=== PATIENT | male | born 1970 | race American Indian/Alaskan Native ===

== ENCOUNTER 2018-06-05 17:20 | Inpatient (IN) | payer SELFPAY ==
[2018-06-05 17:25] VITALS: BMI 24.3
[2018-06-05] MEDS ORDERED: Etomidate 20 mg/10ml Inj IV ONE (17:39)
[2018-06-05] MEDS ORDERED: Succinylcholine 200 mg/10 ml Inj IV ONE (17:39)
--- NOTE | 2018-06-05 17:50 | ED PDOC ---
Arrival/HPI - General Chief Complaint: Altered Mental Status Time Seen by Provider: 06/05/18 17:28 Historian: EMS EM Caveat: Altered Mental Status - History of Present Illness Narrative History of Present Illness (Text): 06/05/18 17:47 Patient is a 47 year old male who was brought to the Emergency department by S for altered mental status. BLS report that patient was found unresponsive [place] bus stop with no witnesses present. Per BLS Narcan was not administered as patient's pupils were not pinpoint and he was breathing. Limited HPI and ROS due to patient's AMS. Context: Street Past Medical History - Provider Review Nursing Documentation Reviewed: Yes - Infectious Disease Hx of Infectious Diseases: None - Psychiatric Hx Substance Use: No Family/Social History - Physician Review Nursing Documentation Reviewed: Yes Family/Social History: Unknown Family HX Smoking Status: Unknown If Ever Smoked Hx Alcohol Use: (unknown) Hx Substance Use: No Allergies/Home Meds Allergies/Adverse Reactions: Allergies Unobtainable Allergy (Verified 06/05/18 17:25) Home Medications: Home Meds Medication Instructions Recorded Confirmed RX: Unobtainable 06/05/18 06/05/18 Review of Systems - Review of Systems Systems not reviewed;Unavailable: Altered Mental Status Physical Exam - Physical Exam Physical Exam Limitations: Altered Mental Status Vital Signs Reviewed: Yes Temperature: Afebrile Blood Pressure: Hypertensive Pulse: Regular Respiratory Rate: Normal Mental Status: Positive for: other (unresponsive) Finger Stick Blood Glucose: 169 - Systems Exam Head: Present: Atraumatic, Normocephalic, Other (No obvious trauma to face.) Pupils: Present: Non-Reactive, Other (right pupil dilated 5mm; left pupil 2mm) Respiratory/Chest: Present: Respiratory Distress, Other (sonorous respiration. No obvious trauma to chest.) Cardiovascular: Present: Regular Rate and Rhythm, Normal S1, S2 Abdomen: Present: Other (No obvious trauma) Back: Present: Other (No obvious trauma.) Upper Extremity: Present: Other (No obvious trauma to upper extremities.). No: Edema Lower Extremity: Present: Other (No obvious trauma to lower extremities.). No: Edema Neurological: Present: Other (GCS=3). No: GCS=15 Medical Decision Making ED Course and Treatment: 06/05/18 17:50 Impression: 47 year old male brought to the Emergency department by BLS for altered mental status. Differential Diagnosis included but are not limited to: Plan: -- Cervical spine and Head CT without contrast -- Chest, Abdomen and Pelvis CT without contrast -- EKG -- Cardiac enzymes -- Labs -- Blood work -- Drug screen -- Chest X-ray -- Blood and urine culture. -- Urinalysis -- Reassess and disposition Progress Notes: Patient's Accu-check was 169. 06/05/18 17:34 Respiratory was called. 06/05/18 17:38 Etomidate 20mg was administered. 06/05/18 17:39 Succinate 100mg was administered 06/05/18 17:41 Direct laryngoscope with 8.0 ET tube, lip line 20cm. 06/05/18 Patient was sent for CT imaging. Upon returning his systolic blood pressure was greater than 200 and diastolic in the 130's. Patient was subsequently started on Cardene drip. 06/05/18 17:48 Called Radiology who stated that she sent CT readings for neuro to read. 06/05/18 17:50 Paged neurosurgery. 06/05/18 18:06 Called who stated that he isn't commissions coordinator. 06/05/18 18:12 Radiology called and stated images show thalamus bleed with intraventricular extension. Started patient on Cerebyx. 06/05/17 18:17 Discussed case with who stated that the patient's hemorrhage is non survivable and would recommend to not transfer. He will call back after reviewing the images. 06/05/18 18:24 reviewed images and restated that brain injury is not survivable. recommends comfort care for patient. 06/05/18 18:26 Spoke with , who was made aware of the patient as he will be moved to ICU. 06/05/18 18:32 Nurse has tried to get in contact with patient's family members. Patient has a phone which is locked. 06/05/18 18:32 Discussed case with , who was made aware of patient and accepts patient under his service. 06/05/18 18:48 Spoke with called back and requested that Mannitol 15mg be given to patient. - Critical Care Critical Care Minutes: Other (80 minutes) - Lab Interpretations I have reviewed the lab results: Yes - RAD Interpretation Narrative RAD Interpretations (Text): 06/05/18 18:[address] without Contrast: Dictator : Nathalie Pearce MD FINDINGS: HEMORRHAGE: There is a 6.8 x 5.0 cm acute parenchymal hematoma in the right basal ganglia and thalamus with moderate surrounding vasogenic edema, significant local and regional mass effect with diffuse effacement of bilateral cortical sulci and basilar cisterns, effacement of the right lateral ventricle and 12 mm midline shift from right to left. There is significant mass effect on the right midbrain and yocasta with impending uncal herniation. VENTRICLES: There is intraventricular extension of hemorrhage in lateral ventricles, 3rd ventricle and 4th ventricle. There is moderate obstructive hydrocephalus CALVARIUM: There is no calvarial fracture or extracranial soft tissue swelling. PARANASAL SINUSES: There is a small retention cyst/polyp in the right maxillary sinus. The remaining included paranasal sinuses are clear. MASTOID AIR CELLS: Predominantly clear. OTHER FINDINGS: None. IMPRESSION: 1. Large acute parenchymal hematoma in the right basal ganglia and thalamus measuring 6.8 x 5.0 cm. Moderate surrounding vasogenic edema, significant local and regional mass effect with diffuse effacement of bilateral cortical sulci and basilar cisterns, right lateral ventricle and 12 mm midline shift from right to left. 2. Significant mass effect on the right midbrain and yocasta with impending uncal herniation. 3. Intraventricular extension of hemorrhage in the lateral, 3rd and 4th ventricles and moderate obstructive hydrocephalus. 06/05/18 18:[address] without contrast: Dictator : Nathalie Pearce MD FINDINGS: VERTEBRAE: There is normal alignment of the cervical vertebral bodies. There is loss of normal cervical lordosis. Vertebral height is normal. Bone mineralization is normal. There is no acute fracture or traumatic anterior listhesis. The craniocervical junction is normal. The atlantoaxial joint normal. DISCS/SPINAL CANAL/NEURAL FORAMINA: Mild multilevel degenerative disc disease. No significant central canal or neural foraminal stenosis. Discs heights are grossly preserved. PARASPINAL SOFT TISSUES: The paraspinous soft tissues are normal. OTHER FINDINGS: Endotracheal tube remains in place. Biapical paraseptal emphysema. No apical pneumothorax. IMPRESSION: No acute fracture or traumatic anterior listhesis. Straightening of the cervical spine may be positional or related to muscle spasm. Chest/Abdomen/Pelvis CT without Contrast: Dictator : Alea Fine MD Findings: Endotracheal tube terminates above the riya. Visualized portions of the inferior thyroid gland appear unremarkable. The unenhanced mediastinal and hilar vascular structures appear grossly unremarkable. The heart appears within normal limits of size. Mild bibasilar atelectasis. No focal consolidation. No pleural effusion. No pneumothorax. Small hiatal hernia. Gastroesophageal reflux. External streak artifact limits evaluation of the upper quadrant. The noncontrast liver, spleen, kidneys, pancreas, adrenal glands, and gallbladder appear unremarkable. The stomach is nondistended. Lack of oral contrast limits evaluation for bowel pathology. Evidence of small bowel hyperdensity, possibly oral contrast from outside imaging. The bowel loops appear within normal limits of caliber without evidence of intestinal obstruction. Diverticulosis without CT evidence of acute diverticulitis. There is no definite free air. The prostate gland measures approximately 3.6 x 3.9 cm. Distended urinary bladder appears otherwise unremarkable. Degenerative changes. Impression: Endotracheal tube terminates above the riya. No acute intra thoracic, intra- abdominal, or intrapelvic pathology identified. Incidental findings as above. Optical Advisor: Radiologist - EKG Interpretation EKG Interpretation (Text): 06/05/18 17:40 EKG shows NSR at 89 BPM with normal intervals and axis. Nonspecific T wave changes, no ST elevations. Interpreted by me. Interpreted by ED Physician: Yes Type: 12 lead EKG - Scribe Statement The provider has reviewed the documentation as recorded by the Scribe Olaf Diehl Provider Scribe Attestation: All medical record entries made by the Scribe were at my direction and personally dictated by me. I have reviewed the chart and agree that the record accurately reflects my personal performance of the history, physical exam, medical decision making, and the department course for this patient. I have also personally directed, reviewed, and agree with the discharge instructions and di sposition. Disposition/Present on Arrival - Present on Arrival Any Indicators Present on Arrival: No History of DVT/PE: No History of Uncontrolled Diabetes: No Urinary Catheter: No History of Decub. Ulcer: No History Surgical Site Infection Following: None - Disposition Have Diagnosis and Disposition been Completed?: Yes Diagnosis: ICH (intracerebral hemorrhage) Disposition: HOSPITALIZED Disposition Time: 18:32 Patient Plan: Admission, ICU Patient Problems: Current Active Problems Problem Status Onset ICH (intracerebral hemorrhage) Acute Condition: CRITICAL
[2018-06-05 17:57] LABS: BASO # 0.05 K/mm3 (0.0-2.0); BASO % 0.6 % (0.0-3.0); EOS # 0.1 (0.0-0.7); EOS % 1.3 % (1.5-5.0); LYMPH # 4.2 (1.2-3.4); LYMPH % 47.4 % (22.0-35.0); MEAN CELL VOLUME 102.9 fl (80.0-105.0); MEAN CORPUSCULAR HEMOGLOBIN 36.3 pg (25.0-35.0); MEAN CORPUSCULAR HGB CONC 35.3 g/dl (31.0-37.0); MEAN PLATELET VOLUME 9.3 fl (7.0-11.0); MONO # 1.2 (0.1-0.6); MONO % 13.5 % (1.0-6.0); RBC 4.13 10^6/uL (3.5-6.1); RED CELL DISTRIBUTION WIDTH 11.7 % (11.5-14.5); WHITE BLOOD COUNT 8.8 10^3/uL (4.5-11.0)
[2018-06-05 17:58] LABS: INR 0.96; PARTIAL THROMBOPLASTIN TIME 29.5 Seconds (26.9-38.3); PROTHROMBIN TIME 10.7 SECONDS (9.4-12.5)
[2018-06-05] MEDS ORDERED: Fosphenytoin 1,000 MG in Sodium Chloride 0.9% 50 ML IV STA (18:08)
[2018-06-05 18:10] LABS: ACETAMINOPHEN < 10.0 ug/ml (10.0-20.0); SALICYLATE 4 mg/dL (2.0-20.0)
[2018-06-05] MEDS ORDERED: Nicardipine 20 MG/200 ML 20 MG/200 ML BAG IV PRN (18:14)
--- NOTE | 2018-06-05 18:17 | CT ---
Date of service: 06/05/2018 PROCEDURE: CT HEAD WITHOUT CONTRAST. HISTORY: AMS COMPARISON: None available. TECHNIQUE: Axial computed tomography images were obtained through the head/brain without intravenous contrast. Radiation dose: Total exam DLP = 796.91 mGy-cm. This CT exam was performed using one or more of the following dose reduction techniques: Automated exposure control, adjustment of the mA and/or kV according to patient size, and/or use of iterative reconstruction technique. FINDINGS: HEMORRHAGE: There is a 6.8 x 5.0 cm acute parenchymal hematoma in the right basal ganglia and thalamus with moderate surrounding vasogenic edema, significant local and regional mass effect with diffuse effacement of bilateral cortical sulci and basilar cisterns, effacement of the right lateral ventricle and 12 mm midline shift from right to left. There is significant mass effect on the right midbrain and yocasta with impending uncal herniation. VENTRICLES: There is intraventricular extension of hemorrhage in lateral ventricles, 3rd ventricle and 4th ventricle. There is moderate obstructive hydrocephalus CALVARIUM: There is no calvarial fracture or extracranial soft tissue swelling. PARANASAL SINUSES: There is a small retention cyst/polyp in the right maxillary sinus. The remaining included paranasal sinuses are clear. MASTOID AIR CELLS: Predominantly clear. OTHER FINDINGS: None. IMPRESSION: 1. Large acute parenchymal hematoma in the right basal ganglia and thalamus measuring 6.8 x 5.0 cm. Moderate surrounding vasogenic edema, significant local and regional mass effect with diffuse effacement of bilateral cortical sulci and basilar cisterns, right lateral ventricle and 12 mm midline shift from right to left. 2. Significant mass effect on the right midbrain and yocasta with impending uncal herniation. 3. Intraventricular extension of hemorrhage in the lateral, 3rd and 4th ventricles and moderate obstructive hydrocephalus. Critical findings were discussed with Dr. Hardy Ontiveros in the ER on 06/05/2018 at 6:13 p.m.
[2018-06-05 18:20] LABS: TROPONIN I < 0.01 ng/mL
--- NOTE | 2018-06-05 18:28 | CT ---
Date of service: 06/05/2018 PROCEDURE: CT Cervical Spine without contrast HISTORY: AMS COMPARISON: None available. TECHNIQUE: Axial computed tomography images were obtained of the cervical spine without the use of intravenous contrast. Coronal and sagittal reformatted images were created and reviewed. Radiation dose: Total exam DLP = 445.81 mGy-cm. This CT exam was performed using one or more of the following dose reduction techniques: Automated exposure control, adjustment of the mA and/or kV according to patient size, and/or use of iterative reconstruction technique. FINDINGS: VERTEBRAE: There is normal alignment of the cervical vertebral bodies. There is loss of normal cervical lordosis. Vertebral height is normal. Bone mineralization is normal. There is no acute fracture or traumatic anterior listhesis. The craniocervical junction is normal. The atlantoaxial joint normal. DISCS/SPINAL CANAL/NEURAL FORAMINA: Mild multilevel degenerative disc disease. No significant central canal or neural foraminal stenosis. Discs heights are grossly preserved. PARASPINAL SOFT TISSUES: The paraspinous soft tissues are normal. OTHER FINDINGS: Endotracheal tube remains in place. Biapical paraseptal emphysema. No apical pneumothorax. IMPRESSION: No acute fracture or traumatic anterior listhesis. Straightening of the cervical spine may be positional or related to muscle spasm.
[2018-06-05 18:32] LABS: ALB/GLOB RATIO 1.4 (1.1-1.8); ALBUMIN 4.9 g/dL (3.0-4.8); ALT/SGPT 57 U/L (7-56); AST/SGOT 139 U/L (17-59); BLOOD UREA NITROGEN 13 mg/dL (7-21); CALCIUM 10.4 mg/dL (8.4-10.5); GFR NON-AFRICAN AMERICAN > 60
--- NOTE | 2018-06-05 18:44 | CT ---
Date of service:06/05/2018 CT chest, abdomen, and pelvis without IV contrast Indication: AMS Technique: Contiguous axial images of the chest, abdomen, and pelvis without oral or IV contrast. Coronal and Sagittal reformats generated and reviewed. This CT exam was performed using 1 or more of the following dose reduction techniques: Automated exposure control, adjustment of the MAA and/or kV according to patient size, and/or use of iterative reconstruction technique. Radiation dose: Total exam DLP = 537.1 MGy-cm. Comparison: None available Findings: Endotracheal tube terminates above the riya. Visualized portions of the inferior thyroid gland appear unremarkable. The unenhanced mediastinal and hilar vascular structures appear grossly unremarkable. The heart appears within normal limits of size. Mild bibasilar atelectasis. No focal consolidation. No pleural effusion. No pneumothorax. Small hiatal hernia. Gastroesophageal reflux. External streak artifact limits evaluation of the upper quadrant. The noncontrast liver, spleen, kidneys, pancreas, adrenal glands, and gallbladder appear unremarkable. The stomach is nondistended. Lack of oral contrast limits evaluation for bowel pathology. Evidence of small bowel hyperdensity, possibly oral contrast from outside imaging. The bowel loops appear within normal limits of caliber without evidence of intestinal obstruction. Diverticulosis without CT evidence of acute diverticulitis. There is no definite free air. The prostate gland measures approximately 3.6 x 3.9 cm. Distended urinary bladder appears otherwise unremarkable. Degenerative changes. Impression: Endotracheal tube terminates above the riya. No acute intra thoracic, intra-abdominal, or intrapelvic pathology identified. Incidental findings as above.
[2018-06-05] MEDS ORDERED: Mannitol 12.5 gm/50 ml Inj IV ONE (18:50)
--- NOTE | 2018-06-05 19:13 | CP.PCM.HP ---
History of Present Illness - History of Present Illness History of Present Illness: Jessie Fabian - Bed 6 cc: Unresponsive Patient is a 47 year old male who was brought to the Emergency department by BLS for altered mental status. BLS report that patient was found unresponsive at a bus stop with no witnesses present. Per BLS Narcan was not administered as patient's pupils were not pinpoint and he was breathing. Limited HPI and ROS due to patient's AMS. Patient intubated NeuroSx on board (Dr. Cobb) Mannitol 15mg given Head CT w/o contrast: 1. Large acute parenchymal hematoma in the right basal ganglia and thalamus measuring 6.8 x 5.0 cm. Moderate surrounding vasogenic edema, significant local and regional mass effect with diffuse effacement of bilateral cortical sulci and basilar cisterns, right lateral ventricle and 12 mm midline shift from right to left. 2. Significant mass effect on the right midbrain and yocasta with impending uncal herniation. 3. Intraventricular extension of hemorrhage in the lateral, 3rd and 4th ventricles and moderate obstructive hydrocephalus. C-spine w/o contrast: No acute fracture or traumatic anterior listhesis. Straightening of the cervical spine may be positional or related to muscle spasm. CT Chest/Abd/Pelvis: Endotracheal tube terminates above the riya. No acute intra thoracic, intra- abdominal, or intrapelvic pathology identified. Incidental findings as above. EKG: NSR at [address] or T wave changes. Past Patient History - Infectious Disease Hx of Infectious Diseases: None - Past Social History Smoking Status: Unknown If Ever Smoked - PSYCHIATRIC Hx Substance Use: No Meds Allergies/Adverse Reactions: Allergies Allergy/AdvReac Type Severity Reaction Status Date / Time Unobtainable Allergy Verified 06/05/18 17:25 Results - Vital Signs Recent Vital Signs: Last Vital Signs Temp Pulse 92 H 06/05/18 18:54 Resp 22 06/05/18 18:54 BP 140/74 06/05/18 18:54 Pulse Ox 93 L 06/05/18 18:54 - Labs Result Diagrams: 06/05/18 17:45 06/05/18 17:45 Labs: Laboratory Results - last 24 hr 06/05/18 06/05/18 06/05/18 17:45 17:45 17:45 WBC 8.8 RBC 4.13 Hgb 15.0 Hct 42.5 MCV 102.9 MCH 36.3 H MCHC 35.3 RDW 11.7 Plt Count 276 MPV 9.3 Neut % (Auto) 37.2 L Lymph % (Auto) 47.4 H [place] % (Auto) 13.5 H Eos % (Auto) 1.3 L Baso % (Auto) 0.6 Lymph # (Auto) 4.2 H [place] # (Auto) 1.2 H Eos # (Auto) 0.1 Baso # (Auto) 0.05 Absolute Neuts (auto) 3.26 PT 10.7 INR 0.96 APTT 29.5 Sodium Potassium Chloride Carbon Dioxide Anion Gap BUN Creatinine Est GFR ( Amer) Est GFR (Non-Af Amer) Random Glucose Calcium Phosphorus Magnesium Total Bilirubin AST ALT Alkaline Phosphatase Lactate Dehydrogenase Total Creatine Kinase Troponin I Total Protein Albumin Globulin Albumin/Globulin Ratio TSH 3rd Generation Salicylates 4 Acetaminophen < 10.0 L Alcohol, Quantitative 06/05/18 06/05/18 17:45 17:45 WBC RBC Hgb Hct MCV MCH MCHC RDW Plt Count MPV Neut % (Auto) Lymph % (Auto) [place] % (Auto) Eos % (Auto) Baso % (Auto) Lymph # (Auto) [place] # (Auto) Eos # (Auto) Baso # (Auto) Absolute Neuts (auto) PT INR APTT Sodium 136 Potassium 2.8 L* Chloride 100 Carbon Dioxide 24 Anion Gap 14 BUN 13 Creatinine 0.8 Est GFR ( Amer) > 60 Est GFR (Non-Af Amer) > 60 Random Glucose 169 H Calcium 10.4 Phosphorus 2.5 Magnesium 1.7 Total Bilirubin 1.0 AST 139 H ALT 57 H Alkaline Phosphatase 108 Lactate Dehydrogenase 681 Total Creatine Kinase 214 Troponin I < 0.01 Total Protein 8.5 H Albumin 4.9 H Globulin 3.6 Albumin/Globulin Ratio 1.4 TSH 3rd Generation 3.37 Salicylates Acetaminophen Alcohol, Quantitative < 10
--- NOTE | 2018-06-05 19:33 | CP.PCM.HP ---
<Ifeanyi Walton - Last Filed: 06/05/18 22:40> History of Present Illness - History of Present Illness History of Present Illness: cc: Unresponsive 47 year old male with unknown past medical history who was brought to the Emergency department by BLS for altered mental status. BLS reported that [place] was [place] un[place] with no witnesses present. Per BLS Narcan was not administered as patient's pupils were not pinpoint and he was breathing. Patient currently intubated and unable to obtain full HPI and ROS due to AMS. Patient found to have a large acute parenchymal hematoma in the right basal ganglia and thalamus measuring 6.8 x 5.0 cm with significant local and regional mass effect and 12 mm midline shift from right to left. Present on Admission - Present on Admission Any Indicators Present on Admission: No Review of Systems - Review of Systems Systems not reviewed;Unavailable: Intubated Past Patient History - Infectious Disease Hx of Infectious Diseases: None - Past Social History Smoking Status: Unknown If Ever Smoked - PSYCHIATRIC Hx Substance Use: No Meds Allergies/Adverse Reactions: Allergies Allergy/AdvReac Type Severity Reaction Status Date / Time Unobtainable Allergy Verified 06/05/18 17:25 Physical Exam - Constitutional Appears: Other - Head Exam Head Exam: ATRAUMATIC, NORMAL INSPECTION, NORMOCEPHALIC - Eye Exam Additional comments: non reactive - Respiratory Exam Respiratory Exam: Clear to Auscultation Bilateral Additional comments: on ventilator - Cardiovascular Exam Cardiovascular Exam: REGULAR RHYTHM, +S1, +S2 - GI/Abdominal Exam GI & Abdominal Exam: Soft - Extremities Exam Extremities exam: Positive for: pedal pulses present. Negative for: pedal edema - Neurological Exam Additional comments: unresponsive Results - Vital Signs Recent Vital Signs: Last Vital Signs Temp 97.4 F L 06/05/18 17:30 Pulse 92 H 06/05/18 18:54 Resp 22 06/05/18 18:54 BP 140/74 06/05/18 18:54 Pulse Ox 93 L 06/05/18 18:54 - Labs Result Diagrams: 06/05/18 17:45 06/05/18 17:45 Labs: Laboratory Results - last 24 hr 06/05/18 06/05/18 06/05/18 17:45 17:45 17:45 WBC 8.8 RBC 4.13 Hgb 15.0 Hct 42.5 MCV 102.9 MCH 36.3 H MCHC 35.3 RDW 11.7 Plt Count 276 MPV 9.3 Neut % (Auto) 37.2 L Lymph % (Auto) 47.4 H [place] % (Auto) 13.5 H Eos % (Auto) 1.3 L Baso % (Auto) 0.6 Lymph # (Auto) 4.2 H [place] # (Auto) 1.2 H Eos # (Auto) 0.1 Baso # (Auto) 0.05 Absolute Neuts (auto) 3.26 PT 10.7 INR 0.96 APTT 29.5 Sodium Potassium Chloride Carbon Dioxide Anion Gap BUN Creatinine Est GFR ( Amer) Est GFR (Non-Af Amer) Random Glucose Calcium Phosphorus Magnesium Total Bilirubin AST ALT Alkaline Phosphatase Lactate Dehydrogenase Total Creatine Kinase Troponin I Total Protein Albumin Globulin Albumin/Globulin Ratio TSH 3rd Generation Salicylates 4 Acetaminophen < 10.0 L Alcohol, Quantitative 06/05/18 06/05/18 17:45 17:45 WBC RBC Hgb Hct MCV MCH MCHC RDW Plt Count MPV Neut % (Auto) Lymph % (Auto) [place] % (Auto) Eos % (Auto) Baso % (Auto) Lymph # (Auto) [place] # (Auto) Eos # (Auto) Baso # (Auto) Absolute Neuts (auto) PT INR APTT Sodium 136 Potassium 2.8 L* Chloride 100 Carbon Dioxide 24 Anion Gap 14 BUN 13 Creatinine 0.8 Est GFR ( Amer) > 60 Est GFR (Non-Af Amer) > 60 Random Glucose 169 H Calcium 10.4 Phosphorus 2.5 Magnesium 1.7 Total Bilirubin 1.0 AST 139 H ALT 57 H Alkaline Phosphatase 108 Lactate Dehydrogenase 681 Total Creatine Kinase 214 Troponin I < 0.01 Total Protein 8.5 H Albumin 4.9 H Globulin 3.6 Albumin/Globulin Ratio 1.4 TSH 3rd Generation 3.37 Salicylates Acetaminophen Alcohol, Quantitative < 10 Assessment & Plan - Assessment and Plan (Free Text) Assessment: 47 year old male with unknown past medical history who was brought to the Emergency department by BLS for altered mental status. Patient found to have a large acute parenchymal hematoma in the right basal ganglia and thalamus measuring 6.8 x 5.0 cm. Moderate surrounding vasogenic edema, significant local and regional mass effect with diffuse effacement of bilateral cortical sulci and basilar cisterns, right lateral ventricle and 12 mm midline shift from right to left. Neurosurgery on board, patient will be monitored in ICU. Plan: 1. AMS secondary to acute parenchymal bleed -patient intubated and on ventilator -urine tox pending -EKG shows NSR at 89 BPM with normal intervals and axis. Nonspecific T wave changes, no ST elevations -mannitol given in ED -Neurosurgery consulted, Reza, follow recs , no intervention at this time -Neuro consulted, Gomez, spoke to over the phone, no additional intervention at this time -Head CT without Contrast:1. Large acute parenchymal hematoma in the right basal ganglia and thalamus measuring 6.8 x 5.0 cm. Moderate surrounding vasogenic edema, significant local and regional mass effect with diffuse effacement of bilateral cortical sulci and basilar cisterns, right lateral ventricle and 12 mm midline shift from right to left. 2. Significant mass effect on the right midbrain and yocasta with impending uncal herniation. 3. Intraventricular extension of hemorrhage in the lateral, 3rd and 4th ventricles and moderate obstructive hydrocephalus. -Cervical Spine CT without contrast: No acute fracture or traumatic anterior listhesis. Straightening of the cervical spine may be positional or related to muscle spasm. -Chest/Abdomen/Pelvis CT without Contrast: Endotracheal tube terminates above the riya. No acute intra thoracic, intra-abdominal, or intrapelvic pathology identified. Incidental findings as above. -patient will be monitored in ICU -NPO, neurochecks -HOOB>45 degrees -blood cultures, urine cultures pending -type and screen -ammonia level pending 2. Hypokalemia -K 2.8 -repleted -continue to monitor 3. Hypertension -Initial BP 206/113 -started on cardene drip, BP improved to 140/74 -will continue to monitor Prophylaxis GI: protonix <Ema Pearce - Last Filed: 06/06/18 20:56> Results - Vital Signs Recent Vital Signs: Last Vital Signs Temp 98.3 F 06/06/18 02:00 Pulse 48 L 06/06/18 09:30 Resp 8 L 06/06/18 11:37 BP 211/144 H 06/06/18 08:03 Pulse Ox 74 L 06/06/18 10:39 - Labs Result Diagrams: 06/06/18 05:40 06/06/18 05:40 Labs: Laboratory Results - last 24 hr 0206/05/18 06/06/18 17:34 21:11 05:15 WBC RBC Hgb Hct MCV MCH MCHC RDW Plt Count MPV Neut % (Auto) Lymph % (Auto) [place] % (Auto) Eos % (Auto) Baso % (Auto) Lymph # (Auto) [place] # (Auto) Eos # (Auto) Baso # (Auto) Absolute Neuts (auto) pCO2 36 pO2 449.0 H HCO3 28.1 H ABG pH 7.50 H ABG Total CO2 29.2 H ABG O2 Saturation 100.1 H ABG O2 Content 25.5 H ABG Base Excess 5.0 H ABG Hemoglobin 17.8 H ABG Carboxyhemoglobin 1.5 POC ABG HHb (Measured) -0.1 L ABG Methemoglobin 1.3 ABG O2 Capacity 25.5 H Hgb O2 Saturation 97.3 FiO2 100.0 Crit Value Called To Rn Crit Value Called By Rs Blood Gas Notified Time 527 Sodium Potassium Chloride Carbon Dioxide Anion Gap BUN Creatinine Est GFR ( Amer) Est GFR (Non-Af Amer) Random Glucose Calcium Total Bilirubin AST ALT Alkaline Phosphatase Ammonia 11 Total Protein Albumin Globulin Albumin/Globulin Ratio Blood Type Confirm B POSITIVE 06/06/18 06/06/18 05:40 05:40 WBC 11.9 H D RBC 4.80 Hgb 17.5 D Hct 50.9 MCV 106.0 H D MCH 36.5 H MCHC 34.4 RDW 12.3 Plt Count 287 MPV 9.6 Neut % (Auto) 76.3 H Lymph % (Auto) 12.5 L [place] % (Auto) 10.8 H Eos % (Auto) 0.3 L Baso % (Auto) 0.1 Lymph # (Auto) 1.5 [place] # (Auto) 1.3 H Eos # (Auto) 0.0 Baso # (Auto) 0.01 Absolute Neuts (auto) 9.09 H pCO2 pO2 HCO3 ABG pH ABG Total CO2 ABG O2 Saturation ABG O2 Content ABG Base Excess ABG Hemoglobin ABG Carboxyhemoglobin POC ABG HHb (Measured) ABG Methemoglobin ABG O2 Capacity Hgb O2 Saturation FiO2 Crit Value Called To Crit Value Called By Blood Gas Notified Time Sodium 156 H* Potassium 4.7 Chloride 122 H Carbon Dioxide 27 Anion Gap 13 BUN 13 Creatinine 1.0 Est GFR ( Amer) > 60 Est GFR (Non-Af Amer) > 60 Random Glucose 201 H Calcium 11.4 H Total Bilirubin 1.3 AST 113 H ALT 51 Alkaline Phosphatase 84 Ammonia Total Protein 9.1 H Albumin 5.1 H Globulin 4.0 Albumin/Globulin Ratio 1.3 Blood Type Confirm Attending/Attestation - Attestation I have personally seen and examined this patient.: Yes I have fully participated in the care of the patient.: Yes I have reviewed all pertinent clinical information: Yes Notes (Text): 06/06/18 20:55 Patient was seen when he was in the ER. Medical record was reviewed. Agree with history , physical examination, assessment and plan. CCT spent > 30 minutes.
[2018-06-05 19:39] LABS: URINE BILIRUBIN NEGATIVE (NEGATIVE); URINE BLOOD LARGE (NEGATIVE); URINE GLUCOSE (UA) 250 mg/dL (NEGATIVE); URINE LEUKOCYTE ESTERASE NEGATIVE Leu/uL (NEGATIVE); URINE PROTEIN 30 mg/dL (<30 mg/dL); URINE UROBILINOGEN 0.2 E.U./dL (<1 E.U./dL)
[2018-06-05 19:46] LABS: URINE APPEARANCE CLEAR (CLEAR); URINE COLOR YELLOW (YELLOW)
[2018-06-05 19:49] LABS: URINE BACTERIA LARGE /hpf; URINE EPITHELIAL CELLS 0 - 2 /hpf (0-5); URINE RBC 25 - 30 /hpf (0-2)
[2018-06-05 19:51] LABS: URINE AMORPHOUS SEDIMENT FEW /hpf; URINE FINE GRANULAR CAST 0 - 2 /hpf
[2018-06-05 19:55] LABS: BARBITURATES, UR NEGATIVE (NEGATIVE); BENZODIAZEPINES, UR NEGATIVE (NEGATIVE); PHENCYCLIDINE, UR NEGATIVE (NEGATIVE)
[2018-06-05 20:09] LABS: OPIATES, UR NEGATIVE (NEGATIVE)
--- NOTE | 2018-06-05 22:38 | CP.PCM.PN ---
Subjective - Date & Time of Evaluation Date of Evaluation: 06/05/18 Time of Evaluation: 22:38 - Subjective Subjective: Discussed in detail prognosis to family members and detectives. Objective - Vital Signs/Intake and Output Vital Signs (last 24 hours): Temp Pulse Resp BP Pulse Ox 97.5 F L 88 21 137/63 98 06/05/18 20:47 06/05/18 21:50 06/05/18 21:11 06/05/18 21:36 06/05/18 21:50 Intake and Output: 06/05/18 06/06/18 18:59 06:59 Intake Total 7.5 72.5 Balance 7.5 72.5 - Medications Medications: Current Medications Nicardipine HCl (Cardene Iv Premix) 20 mg in 200 mls @ 50 mls/hr IV .Q4H PRN; Protocol PRN Reason: TITRATE PER MD ORDER Last Titration: 06/05/18 22:05 Dose: 0 mg/hr, 0 mls/hr Potassium Chloride (Potassium Chloride 20 Meq/100 Ml) 20 meq in 100 mls @ 50 mls/hr IVPB Q2H ESTHELA Stop: 06/05/18 22:44 Last Admin: 06/05/18 20:06 Dose: 50 mls/hr Pantoprazole Sodium (Protonix Inj) 40 mg IVP DAILY ESTHELA - Labs Labs: 06/05/18 17:45 06/05/18 17:45 PT 10.7 SECONDS (9.4-12.5) 06/05/18 17:45 INR 0.96 06/05/18 17:45 APTT 29.5 Seconds (26.9-38.3) 06/05/18 17:45
[2018-06-05] MEDS ORDERED: Fosphenytoin 500 MG in Dextrose 5% In Water 50 ML IV STA (22:57)
[2018-06-05] MEDS ORDERED: Propofol 10 mg/ml 1,000 MG/100 ML VIAL IV PRN (22:58)
[2018-06-05] MEDS ORDERED: Sodium Chloride 0.45% 1,000 ML IV SCH (23:30)
[2018-06-06 03:42] VITALS: TEMP 98.3
[2018-06-06] MEDS ORDERED: Metoprolol 1 mg/ml Inj IVP ONE (05:12)
[2018-06-06 05:27] LABS: ARTERIAL BLOOD GAS HCO3 28.1 mmol/L (21-28); ARTERIAL BLOOD GAS HEMOGLOBIN 17.8 g/dL (11.7-17.4); ARTERIAL BLOOD GAS O2 CAPACITY 25.5 mL/dl (16-24); ARTERIAL BLOOD GAS O2 CONTENT 25.5 ML/dl (15-23); ARTERIAL BLOOD GAS O2 SAT 100.1 % (95-98); ARTERIAL BLOOD GAS PCO2 36 mm/Hg (35-45); ARTERIAL BLOOD GAS TCO2 29.2 mmol.L (22-28)
[2018-06-06] MEDS ORDERED: Metoprolol 1 mg/ml Inj ONE (05:29)
[2018-06-06] MEDS ORDERED: Fosphenytoin 100 MG in Dextrose 5% In Water 50 ML IV SCH (06:00)
[2018-06-06 06:53] LABS: BASO # 0.01 K/mm3 (0.0-2.0); BASO % 0.1 % (0.0-3.0); EOS % 0.3 % (1.5-5.0); LYMPH # 1.5 (1.2-3.4); LYMPH % 12.5 % (22.0-35.0); MEAN CORPUSCULAR HEMOGLOBIN 36.5 pg (25.0-35.0); MEAN CORPUSCULAR HGB CONC 34.4 g/dl (31.0-37.0); MEAN PLATELET VOLUME 9.6 fl (7.0-11.0); MONO # 1.3 (0.1-0.6); MONO % 10.8 % (1.0-6.0); RBC 4.8 10^6/uL (3.5-6.1); RED CELL DISTRIBUTION WIDTH 12.3 % (11.5-14.5); WHITE BLOOD COUNT 11.9 10^3/uL (4.5-11.0)
[2018-06-06 07:09] LABS: HEMOGLOBIN 17.5 g/dL (14.0-18.0)
[2018-06-06 07:20] LABS: ALB/GLOB RATIO 1.3 (1.1-1.8); ALBUMIN 5.1 g/dL (3.0-4.8); ALT/SGPT 51 U/L (7-56); AST/SGOT 113 U/L (17-59); BLOOD UREA NITROGEN 13 mg/dL (7-21); CALCIUM 11.4 mg/dL (8.4-10.5); GFR NON-AFRICAN AMERICAN > 60
--- NOTE | 2018-06-06 07:23 | CARD ---
APPROVED REPORT Date of service: 06/05/2018 EKG Measurement Heart [id number] <Conclusion> Normal sinus rhythm with sinus arrhythmia Nonspecific ST abnormality Abnormal ECG
--- NOTE | 2018-06-06 08:27 | PCM.PROC ---
Procedures Attestation:: I certify that I have explained the specified Operation(s) or Procedure(s), risks, benefits and reasonable alternatives to the Patient and/or other person responsible. The opportunity was given to ask questions and all questions answered - Arterial Line Right Femoral Aseptic technique was employed throughout the procedure: Hand Hygiene done prior to procedure, Full sterile barriers (mask, hair cover, sterile gown, sterile gloves), Full body sterile drape, Chloraprep Antiseptic: 2 minute prep for Femoral Time Out Performed: Yes Pt. placed on Pulse Ox Monitor: Yes Central Line Prep: Chlorhexidine-Alcohol Combination Ultrasound Used for Placement: Yes Gauge (Size): 20 gauge Technique Used: Guide Wire Technique Secured by: Suture Post procedure dressing: Clear vapor permeable Patient Tolerated Procedure: no complications Immediate Complications: none Additional Comments: Supervised By: Mary Boykin MD and Parker Vieyra DO PGY3; Assisted by Leobardo Elam DO PGY2 - Central Line Placement Right Femoral Triple Lumen Catheter Aseptic technique was employed throughout the procedure: Hand Hygiene done prior to procedure, Full sterile barriers (mask, hair cover, sterile gown, sterile gloves), Full body sterile drape, Chloraprep Antiseptic: 2 minute prep for Femoral CVP Time Out Performed: Yes Pt. Placed on Pulse Ox Monitor: Yes Central Line Prep: Chlorhexidine-Alcohol Combination Ultrasound Used for Placement: No Central Line Lumen Inserted: triple Central Line Length: 20 cm Post Procedure: Sutured in Place, Good Blood Return, All Ports Aspirated, Flushed, Capped, Sterile Dressing Applied Secured by: Suture Post procedure dressing: Clear vapor permeable, Chlorhexidine disc (Biopatch) Post Procedure X-Ray: No Patient Tolerated Procedure: No Complications Immediate Complications: None Additional Comments: Supervised By: Mary Boykin MD and Parker Vierya DO PGY3; Assisted by Leobardo Elam DO PGY2
[2018-06-06 08:29] VITALS: BP 211/144
--- NOTE | 2018-06-06 08:42 | PCM.RRT ---
POULTRY BREEDER Nurse Assessment - Situation Date: 06/06/18 Time POULTRY BREEDER was called: 06:53 POULTRY BREEDER Responder Arrival Time: 06:53 POULTRY BREEDER Location:: Critical Care Unit Room Number: 128-3 POULTRY BREEDER Reason for Call: Hypotension POULTRY BREEDER Called By: RN - IV IV Inserted during POULTRY BREEDER?: Yes - Respiratory Oxygen Delivery Method: Intubated - Ventilator Settings Mode: PRVC CPR started during POULTRY BREEDER?: Yes - [place] Coma Scale Coma Scale Eye Opening: No response Coma Scale Motor: None Coma Scale Verbal: No response I.Reason for POULTRY BREEDER - A) Acute Change in Patient: Subjective: Pt had Code Blue called at 6:53 in 128-3 in the ICU. ICU team responded immediately and pts HR tracing showed Asystole. ACLS protocol initiated with compressions and several rounds of epi given and ROSC was acheived. After achieving ROSC central line was placed on the pt in the femoral region due to c- collar applied on pt in ED. Pressors support started. Pt was placed on levophed and vasopressin. Pt was then coded with ACLS initiated and compressions starting immediately as pt was noted to be in PEA arrest. 1 round of epi given and ROSC was achieved. A- line access was gained. Pt was then coded 3 subsequent times, with ACLS initiated and compressions starting immediately with each code ending after 1 round of epi given and achievement of ROSC. Plan - Assessment of Findings&Treatment Plan - Central line - A line - Pressors - Discussed outcomes and poor prognosis with family.
--- NOTE | 2018-06-06 09:55 | RAD ---
Date of service: 06/06/2018 HISTORY: intubated COMPARISON: No prior. FINDINGS: LUNGS: No active pulmonary disease. PLEURA: No significant pleural effusion identified, no pneumothorax apparent. CARDIOVASCULAR: No aortic atherosclerotic calcification present. Normal cardiac size. No congestive change. ET tube noted positioned approximately 2.9 cm above tracheal riya. Nasogastric tube extends to left upper quadrant of abdomen. OSSEOUS STRUCTURES: No significant abnormalities. VISUALIZED UPPER ABDOMEN: Normal. OTHER FINDINGS: None. IMPRESSION: No infiltrate. ET tube and NG tube are in grossly appropriate position.
--- NOTE | 2018-06-06 10:21 | CP.CCUPN ---
CCU Subjective - Physician Review Events Since Last Encounter (Free Text): 06/06/18 10:08 MICU Attending: Upon taking over my shift at 0700am, I was updated on the details regarding this unfortunate 47 M with HTN found down outside at a bus stop upon arrival to the ED found to a large acute parenchymal hematoma in the right basal ganglia and thalamus measuring 6.8 x 5.0 cm with moderate surrounding vasogenic edema and significant mass effect. Neurosurgical consultation recommended no intervention as prognosis was terminal. Patient has coded several times already and I felt there would be no benefit in further CPR given his CT head findings. I conveyed this information to his sisters as they arrived to hospital appox 0800am. They understood we would no longer perform CPR and allow him to pass comfortably in an effort to do no harm and preserve intergrity. They agreed this was reasonable. I answered all questions. Naturally, given the sudden nature and young age of the patient, family was very emotional however there were moments of calm where I was able to convey the above information to them. During these moments they relayed back to me understanding. They also mentioned having most of their questions answered over the phone prior to their arrival by the overnight team. At 0950am asystole on monitor and I went into the the room and pronounced the patient after examining him. Family made aware at bedside. roll examiner to be notified as well. Mary Boykin MD MICU Attending 06/06/18 10:20 CCU Objective - Vital Signs / Intake & Output Vital Signs (Last 4 hours): Vital Signs Pulse BP Pulse Ox 06/06/18 08:26 98 H 06/06/18 08:25 99 H 06/06/18 08:24 100 H 06/06/18 08:23 100 H 06/06/18 08:22 101 H 06/06/18 08:21 102 H 06/06/18 08:20 103 H 06/06/18 08:19 103 H 06/06/18 08:18 104 H 06/06/18 08:17 105 H 06/06/18 08:16 106 H 06/06/18 08:15 107 H 06/06/18 08:14 108 H 06/06/18 08:13 109 H 06/06/18 08:12 111 H 06/06/18 08:11 112 H 06/06/18 08:10 114 H 06/06/18 08:09 116 H 06/06/18 08:08 119 H 06/06/18 08:07 124 H 06/06/18 08:06 131 H 06/06/18 08:05 142 H 06/06/18 08:04 155 H 06/06/18 08:03 211/144 H 06/06/18 08:02 143 H 06/06/18 08:01 147/134 H 06/06/18 08:00 113 H 81 L 06/06/18 07:58 123 H 62/39 L 66 L 06/06/18 07:56 128 H 75/46 L 66 L 06/06/18 07:54 141 H 114/72 69 L 06/06/18 07:52 167 H 153/112 H 66 L 06/06/18 07:50 174 H 69 L 06/06/18 07:49 98 H 91/62 L 56 L 06/06/18 07:47 116 H 06/06/18 07:46 52/31 L 06/06/18 07:45 122 H 06/06/18 07:44 71/47 L 06/06/18 07:43 132 H 06/06/18 07:42 102/71 06/06/18 07:41 156 H 06/06/18 07:40 171 H 06/06/18 07:39 182 H 06/06/18 07:36 105 H 41/26 L 12 L 06/06/18 07:34 44/26 L Intake and Output (Last 8hrs): Intake & Output 06/05/18 06/06/18 06/06/18 22:59 06:59 14:59 Intake Total 80.0 1300 Output Total 7400 Balance 80.0 -6100 Weight 72.575 kg Intake: IV 80.0 1300 Left Antecubital 1050 Left Forearm 175 Right Antecubital 0 Right Forearm 0 Oral 0 Output: Gastric Amount 500 Stomach 500 Urine 6900 2-way Urethral 6900 Other: Voiding Method Indwelling Catheter # Bowel Movements 0 - Physical Exam Head: Positive for: Atraumatic, Normocephalic, Other (No obvious trauma to face.) Pupils: Positive for: Non-Reactive, Other (right pupil dilated 5mm; left pupil 2mm) Respiratory/Chest: Positive for: Respiratory Distress, Other (sonorous respiration. No obvious trauma to chest.) Cardiovascular: Positive for: Regular Rate and Rhythm, Normal S1, S2 Abdomen: Positive for: Other (No obvious trauma) Back: Positive for: Other (No obvious trauma.) Upper Extremity: Positive for: Other (No obvious trauma to upper extremities.). Negative for: Edema Lower Extremity: Positive for: Other (No obvious trauma to lower extremities.). Negative for: Edema Neurological: Positive for: Other (GCS=3). Negative for: GCS=15 - Medications Active Medications: Active Medications Generic Name Dose Route Start Last Admin Trade Name Freq PRN Reason Stop Dose Admin Nicardipine HCl 20 mg in 200 mls @ 50 mls/hr 06/05/18 18:14 06/06/18 06:30 Cardene Iv Premix IV 2.5 mg/hr .Q4H PRN 25 mls/hr TITRATE PER MD ORDER Titration Protocol 5 MG/HR Fosphenytoin Sodium 100 mg/ 52 mls @ 200 mls/hr 06/06/18 06:00 06/06/18 06:04 Dextrose IV 200 mls/hr Q8 ESTHELA Administration Propofol 1,000 mg in 100 mls @ 2.177 mls/hr 06/05/18 22:58 Diprivan IV .Q24H PRN TITRATE PER MD ORDER Protocol 5 MCG/KG/MIN Sodium Chloride 1,000 mls @ 100 mls/hr 06/05/18 23:30 06/06/18 00:54 Sodium Chloride 0.45% IV 06/08/18 23:31 100 mls/hr .Q10H ESTHELA Administration Acetaminophen 1,000 mg in 100 mls @ 400 mls/hr 06/06/18 05:14 06/06/18 06:05 Ofirmev IVPB 06/08/18 05:15 400 mls/hr Q6H PRN Administration Temp>100.4*F Vasopressin 20 units/ Sodium 101 mls @ 9.09 mls/hr 06/06/18 07:45 Chloride IV .Q11H7M ESTHELA Protocol 0.03 U/MIN Pantoprazole Sodium 40 mg 06/06/18 10:00 Protonix Inj IVP DAILY ESTHELA - Patient Studies Lab Studies: Lab Studies 06/06/18 06/06/18 06/06/18 Range/Units 05:40 05:40 05:15 WBC 11.9 H D (4.5-11.0) 10^3/uL RBC 4.80 (3.5-6.1) 10^6/uL Hgb 17.5 D (14.0-18.0) g/dL Hct 50.9 (42.0-52.0) % MCV 106.0 H D (80.0-105.0) fl MCH 36.5 H (25.0-35.0) pg MCHC 34.4 (31.0-37.0) g/dl RDW 12.3 (11.5-14.5) % Plt Count 287 (120.0-450.0) 10^3/uL MPV 9.6 (7.0-11.0) fl Neut % (Auto) 76.3 H (50.0-68.0) % Lymph % (Auto) 12.5 L (22.0-35.0) % [place] % (Auto) 10.8 H (1.0-6.0) % Eos % (Auto) 0.3 L (1.5-5.0) % Baso % (Auto) 0.1 (0.0-3.0) % Lymph # (Auto) 1.5 (1.2-3.4) [place] # (Auto) 1.3 H (0.1-0.6) Eos # (Auto) 0.0 (0.0-0.7) Baso # (Auto) 0.01 (0.0-2.0) K/mm3 Absolute Neuts (auto) 9.09 H (1.4-6.5) PT (9.4-12.5) SECONDS INR APTT (26.9-38.3) Seconds pCO2 36 (35-45) mm/Hg pO2 449.0 H (80-100) mm/Hg HCO3 28.1 H (21-28) mmol/L ABG pH 7.50 H (7.35-7.45) ABG Total CO2 29.2 H (22-28) mmol.L ABG O2 Saturation 100.1 H (95-98) % ABG O2 Content 25.5 H (15-23) ML/dl ABG Base Excess 5.0 H (-2.0-3.0) mmol/L ABG Hemoglobin 17.8 H (11.7-17.4) g/dL ABG Carboxyhemoglobin 1.5 (0.5-1.5) % POC ABG HHb (Measured) -0.1 L (0-5) % ABG Methemoglobin 1.3 (0.0-3.0) % ABG O2 Capacity 25.5 H (16-24) mL/dl Hgb O2 Saturation 97.3 (95.0-98.0) % FiO2 100.0 % Crit Value Called To Rn Crit Value Called By Rs Blood Gas Notified Time 527 Sodium 156 H* (132-148) mmol/L Potassium 4.7 (3.6-5.0) mmol/L Chloride 122 H (98-107) mmol/L Carbon Dioxide 27 (21-33) mmol/L Anion Gap 13 (10-20) BUN 13 (7-21) mg/dL Creatinine 1.0 (0.8-1.5) mg/dl Est GFR ( Amer) > 60 Est GFR (Non-Af Amer) > 60 Random Glucose 201 H (70-110) mg/dL Calcium 11.4 H (8.4-10.5) mg/dL Phosphorus (2.5-4.5) mg/dL Magnesium (1.7-2.2) mg/dL Total Bilirubin 1.3 (0.2-1.3) mg/dL AST 113 H (17-59) U/L ALT 51 (7-56) U/L Alkaline Phosphatase 84 (38-126) U/L Ammonia (9-33) umol/L Lactate Dehydrogenase (333-699) U/L Total Creatine Kinase (35-230) U/L Troponin I ng/mL Total Protein 9.1 H (5.8-8.3) g/dL Albumin 5.1 H (3.0-4.8) g/dL Globulin 4.0 gm/dL Albumin/Globulin Ratio 1.3 (1.1-1.8) TSH 3rd Generation (0.46-4.68) mIU/mL Urine Color (YELLOW) Urine Appearance (CLEAR) Urine pH (4.7-8.0) Ur Specific [place] (1.005-1.035) Urine Protein (<30 mg/dL) mg/dL Urine Glucose (UA) (NEGATIVE) mg/dL Urine Ketones (NEGATIVE) mg/dL Urine Blood (NEGATIVE) Urine Nitrate (NEGATIVE) Urine Bilirubin (NEGATIVE) Urine Urobilinogen (<1 E.U./dL) E.U./dL Ur Leukocyte Esterase (NEGATIVE) Willis/uL Urine RBC (0-2) /hpf Urine WBC (0-6) /hpf Ur Epithelial Cells (0-5) /hpf Amorphous Sediment (NONE) /hpf Urine Bacteria (NONE) /hpf Fine Granular Casts (NONE) /hpf Urine Other /hpf Salicylates (2.0-20.0) mg/dL Urine Opiates Screen (NEGATIVE) Urine Methadone Screen (NEGATIVE) Acetaminophen (10.0-20.0) ug/ml Ur Barbiturates Screen (NEGATIVE) Ur Phencyclidine Scrn (NEGATIVE) Ur Amphetamines Screen (NEGATIVE) U Benzodiazepines Scrn (NEGATIVE) U Oth Cocaine Metabols (NEGATIVE) U Cannabinoids Screen (NEGATIVE) Alcohol, Quantitative (0-10) mg/dL Blood Type Blood Type Confirm Antibody Screen BBK History Checked 06/05/18 06/05/18 06/05/18 Range/Units 21:11 19:12 18:12 WBC (4.5-11.0) 10^3/uL RBC (3.5-6.1) 10^6/uL Hgb (14.0-18.0) g/dL Hct (42.0-52.0) % MCV (80.0-105.0) fl MCH (25.0-35.0) pg MCHC (31.0-37.0) g/dl RDW (11.5-14.5) % Plt Count (120.0-450.0) 10^3/uL MPV (7.0-11.0) fl Neut % (Auto) (50.0-68.0) % Lymph % (Auto) (22.0-35.0) % [place] % (Auto) (1.0-6.0) % Eos % (Auto) (1.5-5.0) % Baso % (Auto) (0.0-3.0) % Lymph # (Auto) (1.2-3.4) [place] # (Auto) (0.1-0.6) Eos # (Auto) (0.0-0.7) Baso # (Auto) (0.0-2.0) K/mm3 Absolute Neuts (auto) (1.4-6.5) PT (9.4-12.5) SECONDS INR APTT (26.9-38.3) Seconds pCO2 (35-45) mm/Hg pO2 (80-100) mm/Hg HCO3 (21-28) mmol/L ABG pH (7.35-7.45) ABG Total CO2 (22-28) mmol.L ABG O2 Saturation (95-98) % ABG O2 Content (15-23) ML/dl ABG Base Excess (-2.0-3.0) mmol/L ABG Hemoglobin (11.7-17.4) g/dL ABG Carboxyhemoglobin (0.5-1.5) % POC ABG HHb (Measured) (0-5) % ABG Methemoglobin (0.0-3.0) % ABG O2 Capacity (16-24) mL/dl Hgb O2 Saturation (95.0-98.0) % FiO2 % Crit Value Called To Crit Value Called By Blood Gas Notified Time Sodium (132-148) mmol/L Potassium (3.6-5.0) mmol/L Chloride (98-107) mmol/L Carbon Dioxide (21-33) mmol/L Anion Gap (10-20) BUN (7-21) mg/dL Creatinine (0.8-1.5) mg/dl Est GFR ( Amer) Est GFR (Non-Af Amer) Random Glucose (70-110) mg/dL Calcium (8.4-10.5) mg/dL Phosphorus (2.5-4.5) mg/dL Magnesium (1.7-2.2) mg/dL Total Bilirubin (0.2-1.3) mg/dL AST (17-59) U/L ALT (7-56) U/L Alkaline Phosphatase (38-126) U/L Ammonia 11 (9-33) umol/L Lactate Dehydrogenase (333-699) U/L Total Creatine Kinase (35-230) U/L Troponin I ng/mL Total Protein (5.8-8.3) g/dL Albumin (3.0-4.8) g/dL Globulin gm/dL Albumin/Globulin Ratio (1.1-1.8) TSH 3rd Generation (0.46-4.68) mIU/mL Urine Color (YELLOW) Urine Appearance (CLEAR) Urine pH (4.7-8.0) Ur Specific [place] (1.005-1.035) Urine Protein (<30 mg/dL) mg/dL Urine Glucose (UA) (NEGATIVE) mg/dL Urine Ketones (NEGATIVE) mg/dL Urine Blood (NEGATIVE) Urine Nitrate (NEGATIVE) Urine Bilirubin (NEGATIVE) Urine Urobilinogen (<1 E.U./dL) E.U./dL Ur Leukocyte Esterase (NEGATIVE) Willis/uL Urine RBC (0-2) /hpf Urine WBC (0-6) /hpf Ur Epithelial Cells (0-5) /hpf Amorphous Sediment (NONE) /hpf Urine Bacteria (NONE) /hpf Fine Granular Casts (NONE) /hpf Urine Other /hpf Salicylates (2.0-20.0) mg/dL Urine Opiates Screen Negative (NEGATIVE) Urine Methadone Screen Negative (NEGATIVE) Acetaminophen (10.0-20.0) ug/ml Ur Barbiturates Screen Negative (NEGATIVE) Ur Phencyclidine Scrn Negative (NEGATIVE) Ur Amphetamines Screen Negative (NEGATIVE) U Benzodiazepines Scrn Negative (NEGATIVE) U Oth Cocaine Metabols Negative (NEGATIVE) U Cannabinoids Screen Negative (NEGATIVE) Alcohol, Quantitative (0-10) mg/dL Blood Type B POSITIVE Blood Type Confirm Antibody Screen Negative BBK History Checked No verified bt 06/05/18 06/05/18 06/05/18 Range/Units 18:12 17:45 17:45 WBC (4.5-11.0) 10^3/uL RBC (3.5-6.1) 10^6/uL Hgb (14.0-18.0) g/dL Hct (42.0-52.0) % MCV (80.0-105.0) fl MCH (25.0-35.0) pg MCHC (31.0-37.0) g/dl RDW (11.5-14.5) % Plt Count (120.0-450.0) 10^3/uL MPV (7.0-11.0) fl Neut % (Auto) (50.0-68.0) % Lymph % (Auto) (22.0-35.0) % [place] % (Auto) (1.0-6.0) % Eos % (Auto) (1.5-5.0) % Baso % (Auto) (0.0-3.0) % Lymph # (Auto) (1.2-3.4) [place] # (Auto) (0.1-0.6) Eos # (Auto) (0.0-0.7) Baso # (Auto) (0.0-2.0) K/mm3 Absolute Neuts (auto) (1.4-6.5) PT (9.4-12.5) SECONDS INR APTT (26.9-38.3) Seconds pCO2 (35-45) mm/Hg pO2 (80-100) mm/Hg HCO3 (21-28) mmol/L ABG pH (7.35-7.45) ABG Total CO2 (22-28) mmol.L ABG O2 Saturation (95-98) % ABG O2 Content (15-23) ML/dl ABG Base Excess (-2.0-3.0) mmol/L ABG Hemoglobin (11.7-17.4) g/dL ABG Carboxyhemoglobin (0.5-1.5) % POC ABG HHb (Measured) (0-5) % ABG Methemoglobin (0.0-3.0) % ABG O2 Capacity (16-24) mL/dl Hgb O2 Saturation (95.0-98.0) % FiO2 % Crit Value Called To Crit Value Called By Blood Gas Notified Time Sodium 136 (132-148) mmol/L Potassium 2.8 L* (3.6-5.0) mmol/L Chloride 100 (98-107) mmol/L Carbon Dioxide 24 (21-33) mmol/L Anion Gap 14 (10-20) BUN 13 (7-21) mg/dL Creatinine 0.8 (0.8-1.5) mg/dl Est GFR ( Amer) > 60 Est GFR (Non-Af Amer) > 60 Random Glucose 169 H (70-110) mg/dL Calcium 10.4 (8.4-10.5) mg/dL Phosphorus 2.5 (2.5-4.5) mg/dL Magnesium 1.7 (1.7-2.2) mg/dL Total Bilirubin 1.0 (0.2-1.3) mg/dL AST 139 H (17-59) U/L ALT 57 H (7-56) U/L Alkaline Phosphatase 108 (38-126) U/L Ammonia (9-33) umol/L Lactate Dehydrogenase 681 (333-699) U/L Total Creatine Kinase 214 (35-230) U/L Troponin I < 0.01 ng/mL Total Protein 8.5 H (5.8-8.3) g/dL Albumin 4.9 H (3.0-4.8) g/dL Globulin 3.6 gm/dL Albumin/Globulin Ratio 1.4 (1.1-1.8) TSH 3rd Generation 3.37 (0.46-4.68) mIU/mL Urine Color Yellow (YELLOW) Urine Appearance Clear (CLEAR) Urine pH 7.0 (4.7-8.0) Ur Specific [place] 1.015 (1.005-1.035) Urine Protein 30 H (<30 mg/dL) mg/dL Urine Glucose (UA) 250 H (NEGATIVE) mg/dL Urine Ketones Trace H (NEGATIVE) mg/dL Urine Blood Large H (NEGATIVE) Urine Nitrate Negative (NEGATIVE) Urine Bilirubin Negative (NEGATIVE) Urine Urobilinogen 0.2 (<1 E.U./dL) E.U./dL Ur Leukocyte Esterase Negative (NEGATIVE) Willis/uL Urine RBC 25 - 30 H (0-2) /hpf Urine WBC 1 - 3 (0-6) /hpf Ur Epithelial Cells 0 - 2 (0-5) /hpf Amorphous Sediment Few (NONE) /hpf Urine Bacteria Large (NONE) /hpf Fine Granular Casts 0 - 2 (NONE) /hpf Urine Other Fiber /hpf Salicylates (2.0-20.0) mg/dL Urine Opiates Screen (NEGATIVE) Urine Methadone Screen (NEGATIVE) Acetaminophen (10.0-20.0) ug/ml Ur Barbiturates Screen (NEGATIVE) Ur Phencyclidine Scrn (NEGATIVE) Ur Amphetamines Screen (NEGATIVE) U Benzodiazepines Scrn (NEGATIVE) U Oth Cocaine Metabols (NEGATIVE) U Cannabinoids Screen (NEGATIVE) Alcohol, Quantitative < 10 (0-10) mg/dL Blood Type Blood Type Confirm Antibody Screen BBK History Checked 06/05/18 06/05/18 06/05/18 Range/Units 17:45 17:45 17:45 WBC 8.8 (4.5-11.0) 10^3/uL RBC 4.13 (3.5-6.1) 10^6/uL Hgb 15.0 (14.0-18.0) g/dL Hct 42.5 (42.0-52.0) % MCV 102.9 (80.0-105.0) fl MCH 36.3 H (25.0-35.0) pg MCHC 35.3 (31.0-37.0) g/dl RDW 11.7 (11.5-14.5) % Plt Count 276 (120.0-450.0) 10^3/uL MPV 9.3 (7.0-11.0) fl Neut % (Auto) 37.2 L (50.0-68.0) % Lymph % (Auto) 47.4 H (22.0-35.0) % [place] % (Auto) 13.5 H (1.0-6.0) % Eos % (Auto) 1.3 L (1.5-5.0) % Baso % (Auto) 0.6 (0.0-3.0) % Lymph # (Auto) 4.2 H (1.2-3.4) [place] # (Auto) 1.2 H (0.1-0.6) Eos # (Auto) 0.1 (0.0-0.7) Baso # (Auto) 0.05 (0.0-2.0) K/mm3 Absolute Neuts (auto) 3.26 (1.4-6.5) PT 10.7 (9.4-12.5) SECONDS INR 0.96 APTT 29.5 (26.9-38.3) Seconds pCO2 (35-45) mm/Hg pO2 (80-100) mm/Hg HCO3 (21-28) mmol/L ABG pH (7.35-7.45) ABG Total CO2 (22-28) mmol.L ABG O2 Saturation (95-98) % ABG O2 Content (15-23) ML/dl ABG Base Excess (-2.0-3.0) mmol/L ABG Hemoglobin (11.7-17.4) g/dL ABG Carboxyhemoglobin (0.5-1.5) % POC ABG HHb (Measured) (0-5) % ABG Methemoglobin (0.0-3.0) % ABG O2 Capacity (16-24) mL/dl Hgb O2 Saturation (95.0-98.0) % FiO2 % Crit Value Called To Crit Value Called By Blood Gas Notified Time Sodium (132-148) mmol/L Potassium (3.6-5.0) mmol/L Chloride (98-107) mmol/L Carbon Dioxide (21-33) mmol/L Anion Gap (10-20) BUN (7-21) mg/dL Creatinine (0.8-1.5) mg/dl Est GFR ( Amer) Est GFR (Non-Af Amer) Random Glucose (70-110) mg/dL Calcium (8.4-10.5) mg/dL Phosphorus (2.5-4.5) mg/dL Magnesium (1.7-2.2) mg/dL Total Bilirubin (0.2-1.3) mg/dL AST (17-59) U/L ALT (7-56) U/L Alkaline Phosphatase (38-126) U/L Ammonia (9-33) umol/L Lactate Dehydrogenase (333-699) U/L Total Creatine Kinase (35-230) U/L Troponin I ng/mL Total Protein (5.8-8.3) g/dL Albumin (3.0-4.8) g/dL Globulin gm/dL Albumin/Globulin Ratio (1.1-1.8) TSH 3rd Generation (0.46-4.68) mIU/mL Urine Color (YELLOW) Urine Appearance (CLEAR) Urine pH (4.7-8.0) Ur Specific [place] (1.005-1.035) Urine Protein (<30 mg/dL) mg/dL Urine Glucose (UA) (NEGATIVE) mg/dL Urine Ketones (NEGATIVE) mg/dL Urine Blood (NEGATIVE) Urine Nitrate (NEGATIVE) Urine Bilirubin (NEGATIVE) Urine Urobilinogen (<1 E.U./dL) E.U./dL Ur Leukocyte Esterase (NEGATIVE) Willis/uL Urine RBC (0-2) /hpf Urine WBC (0-6) /hpf Ur Epithelial Cells (0-5) /hpf Amorphous Sediment (NONE) /hpf Urine Bacteria (NONE) /hpf Fine Granular Casts (NONE) /hpf Urine Other /hpf Salicylates 4 (2.0-20.0) mg/dL Urine Opiates Screen (NEGATIVE) Urine Methadone Screen (NEGATIVE) Acetaminophen < 10.0 L (10.0-20.0) ug/ml Ur Barbiturates Screen (NEGATIVE) Ur Phencyclidine Scrn (NEGATIVE) Ur Amphetamines Screen (NEGATIVE) U Benzodiazepines Scrn (NEGATIVE) U Oth Cocaine Metabols (NEGATIVE) U Cannabinoids Screen (NEGATIVE) Alcohol, Quantitative (0-10) mg/dL Blood Type Blood Type Confirm Antibody Screen BBK History Checked 06/05/18 Range/Units 17:34 WBC (4.5-11.0) 10^3/uL RBC (3.5-6.1) 10^6/uL Hgb (14.0-18.0) g/dL Hct (42.0-52.0) % MCV (80.0-105.0) fl MCH (25.0-35.0) pg MCHC (31.0-37.0) g/dl RDW (11.5-14.5) % Plt Count (120.0-450.0) 10^3/uL MPV (7.0-11.0) fl Neut % (Auto) (50.0-68.0) % Lymph % (Auto) (22.0-35.0) % [place] % (Auto) (1.0-6.0) % Eos % (Auto) (1.5-5.0) % Baso % (Auto) (0.0-3.0) % Lymph # (Auto) (1.2-3.4) [place] # (Auto) (0.1-0.6) Eos # (Auto) (0.0-0.7) Baso # (Auto) (0.0-2.0) K/mm3 Absolute Neuts (auto) (1.4-6.5) PT (9.4-12.5) SECONDS INR APTT (26.9-38.3) Seconds pCO2 (35-45) mm/Hg pO2 (80-100) mm/Hg HCO3 (21-28) mmol/L ABG pH (7.35-7.45) ABG Total CO2 (22-28) mmol.L ABG O2 Saturation (95-98) % ABG O2 Content (15-23) ML/dl ABG Base Excess (-2.0-3.0) mmol/L ABG Hemoglobin (11.7-17.4) g/dL ABG Carboxyhemoglobin (0.5-1.5) % POC ABG HHb (Measured) (0-5) % ABG Methemoglobin (0.0-3.0) % ABG O2 Capacity (16-24) mL/dl Hgb O2 Saturation (95.0-98.0) % FiO2 % Crit Value Called To Crit Value Called By Blood Gas Notified Time Sodium (132-148) mmol/L Potassium (3.6-5.0) mmol/L Chloride (98-107) mmol/L Carbon Dioxide (21-33) mmol/L Anion Gap (10-20) BUN (7-21) mg/dL Creatinine (0.8-1.5) mg/dl Est GFR ( Amer) Est GFR (Non-Af Amer) Random Glucose (70-110) mg/dL Calcium (8.4-10.5) mg/dL Phosphorus (2.5-4.5) mg/dL Magnesium (1.7-2.2) mg/dL Total Bilirubin (0.2-1.3) mg/dL AST (17-59) U/L ALT (7-56) U/L Alkaline Phosphatase (38-126) U/L Ammonia (9-33) umol/L Lactate Dehydrogenase (333-699) U/L Total Creatine Kinase (35-230) U/L Troponin I ng/mL Total Protein (5.8-8.3) g/dL Albumin (3.0-4.8) g/dL Globulin gm/dL Albumin/Globulin Ratio (1.1-1.8) TSH 3rd Generation (0.46-4.68) mIU/mL Urine Color (YELLOW) Urine Appearance (CLEAR) Urine pH (4.7-8.0) Ur Specific [place] (1.005-1.035) Urine Protein (<30 mg/dL) mg/dL Urine Glucose (UA) (NEGATIVE) mg/dL Urine Ketones (NEGATIVE) mg/dL Urine Blood (NEGATIVE) Urine Nitrate (NEGATIVE) Urine Bilirubin (NEGATIVE) Urine Urobilinogen (<1 E.U./dL) E.U./dL Ur Leukocyte Esterase (NEGATIVE) Willis/uL Urine RBC (0-2) /hpf Urine WBC (0-6) /hpf Ur Epithelial Cells (0-5) /hpf Amorphous Sediment (NONE) /hpf Urine Bacteria (NONE) /hpf Fine Granular Casts (NONE) /hpf Urine Other /hpf Salicylates (2.0-20.0) mg/dL Urine Opiates Screen (NEGATIVE) Urine Methadone Screen (NEGATIVE) Acetaminophen (10.0-20.0) ug/ml Ur Barbiturates Screen (NEGATIVE) Ur Phencyclidine Scrn (NEGATIVE) Ur Amphetamines Screen (NEGATIVE) U Benzodiazepines Scrn (NEGATIVE) U Oth Cocaine Metabols (NEGATIVE) U Cannabinoids Screen (NEGATIVE) Alcohol, Quantitative (0-10) mg/dL Blood Type Blood Type Confirm B POSITIVE Antibody Screen BBK History Checked Laboratory Results - last 24 hr 06/05/18 06/05/18 06/05/18 17:34 17:45 17:45 WBC 8.8 RBC 4.13 Hgb 15.0 Hct 42.5 MCV 102.9 MCH 36.3 H MCHC 35.3 RDW 11.7 Plt Count 276 MPV 9.3 Neut % (Auto) 37.2 L Lymph % (Auto) 47.4 H [place] % (Auto) 13.5 H Eos % (Auto) 1.3 L Baso % (Auto) 0.6 Lymph # (Auto) 4.2 H [place] # (Auto) 1.2 H Eos # (Auto) 0.1 Baso # (Auto) 0.05 Absolute Neuts (auto) 3.26 PT INR APTT pCO2 pO2 HCO3 ABG pH ABG Total CO2 ABG O2 Saturation ABG O2 Content ABG Base Excess ABG Hemoglobin ABG Carboxyhemoglobin POC ABG HHb (Measured) ABG Methemoglobin ABG O2 Capacity Hgb O2 Saturation FiO2 Crit Value Called To Crit Value Called By Blood Gas Notified Time Sodium Potassium Chloride Carbon Dioxide Anion Gap BUN Creatinine Est GFR ( Amer) Est GFR (Non-Af Amer) Random Glucose Calcium Phosphorus Magnesium Total Bilirubin AST ALT Alkaline Phosphatase Ammonia Lactate Dehydrogenase Total Creatine Kinase Troponin I Total Protein Albumin Globulin Albumin/Globulin Ratio TSH 3rd Generation Urine Color Urine Appearance Urine pH Ur Specific [place] Urine Protein Urine Glucose (UA) Urine Ketones Urine Blood Urine Nitrate Urine Bilirubin Urine Urobilinogen Ur Leukocyte Esterase Urine RBC Urine WBC Ur Epithelial Cells Amorphous Sediment Urine Bacteria Fine Granular Casts Urine Other Salicylates 4 Urine Opiates Screen Urine Methadone Screen Acetaminophen < 10.0 L Ur Barbiturates Screen Ur Phencyclidine Scrn Ur Amphetamines Screen U Benzodiazepines Scrn U Oth Cocaine Metabols U Cannabinoids Screen Alcohol, Quantitative Blood Type Blood Type Confirm B POSITIVE Antibody Screen BBK History Checked 06/05/18 06/05/18 06/05/18 17:45 17:45 17:45 WBC RBC Hgb Hct MCV MCH MCHC RDW Plt Count MPV Neut % (Auto) Lymph % (Auto) [place] % (Auto) Eos % (Auto) Baso % (Auto) Lymph # (Auto) [place] # (Auto) Eos # (Auto) Baso # (Auto) Absolute Neuts (auto) PT 10.7 INR 0.96 APTT 29.5 pCO2 pO2 HCO3 ABG pH ABG Total CO2 ABG O2 Saturation ABG O2 Content ABG Base Excess ABG Hemoglobin ABG Carboxyhemoglobin POC ABG HHb (Measured) ABG Methemoglobin ABG O2 Capacity Hgb O2 Saturation FiO2 Crit Value Called To Crit Value Called By Blood Gas Notified Time Sodium 136 Potassium 2.8 L* Chloride 100 Carbon Dioxide 24 Anion Gap 14 BUN 13 Creatinine 0.8 Est GFR ( Amer) > 60 Est GFR (Non-Af Amer) > 60 Random Glucose 169 H Calcium 10.4 Phosphorus 2.5 Magnesium 1.7 Total Bilirubin 1.0 AST 139 H ALT 57 H Alkaline Phosphatase 108 Ammonia Lactate Dehydrogenase 681 Total Creatine Kinase 214 Troponin I < 0.01 Total Protein 8.5 H Albumin 4.9 H Globulin 3.6 Albumin/Globulin Ratio 1.4 TSH 3rd Generation 3.37 Urine Color Urine Appearance Urine pH Ur Specific [place] Urine Protein Urine Glucose (UA) Urine Ketones Urine Blood Urine Nitrate Urine Bilirubin Urine Urobilinogen Ur Leukocyte Esterase Urine RBC Urine WBC Ur Epithelial Cells Amorphous Sediment Urine Bacteria Fine Granular Casts Urine Other Salicylates Urine Opiates Screen Urine Methadone Screen Acetaminophen Ur Barbiturates Screen Ur Phencyclidine Scrn Ur Amphetamines Screen U Benzodiazepines Scrn U Oth Cocaine Metabols U Cannabinoids Screen Alcohol, Quantitative < 10 Blood Type Blood Type Confirm Antibody Screen BBK History Checked 06/05/18 06/05/18 06/05/18 18:12 18:12 19:12 WBC RBC Hgb Hct MCV MCH MCHC RDW Plt Count MPV Neut % (Auto) Lymph % (Auto) [place] % (Auto) Eos % (Auto) Baso % (Auto) Lymph # (Auto) [place] # (Auto) Eos # (Auto) Baso # (Auto) Absolute Neuts (auto) PT INR APTT pCO2 pO2 HCO3 ABG pH ABG Total CO2 ABG O2 Saturation ABG O2 Content ABG Base Excess ABG Hemoglobin ABG Carboxyhemoglobin POC ABG HHb (Measured) ABG Methemoglobin ABG O2 Capacity Hgb O2 Saturation FiO2 Crit Value Called To Crit Value Called By Blood Gas Notified Time Sodium Potassium Chloride Carbon Dioxide Anion Gap BUN Creatinine Est GFR ( Amer) Est GFR (Non-Af Amer) Random Glucose Calcium Phosphorus Magnesium Total Bilirubin AST ALT Alkaline Phosphatase Ammonia Lactate Dehydrogenase Total Creatine Kinase Troponin I Total Protein Albumin Globulin Albumin/Globulin Ratio TSH 3rd Generation Urine Color Yellow Urine Appearance Clear Urine pH 7.0 Ur Specific [place] 1.015 Urine Protein 30 H Urine Glucose (UA) 250 H Urine Ketones Trace H Urine Blood Large H Urine Nitrate Negative Urine Bilirubin Negative Urine Urobilinogen 0.2 Ur Leukocyte Esterase Negative Urine RBC 25 - 30 H Urine WBC 1 - 3 Ur Epithelial Cells 0 - 2 Amorphous Sediment Few Urine Bacteria Large Fine Granular Casts 0 - 2 Urine Other Fiber Salicylates Urine Opiates Screen Negative Urine Methadone Screen Negative Acetaminophen Ur Barbiturates Screen Negative Ur Phencyclidine Scrn Negative Ur Amphetamines Screen Negative U Benzodiazepines Scrn Negative U Oth Cocaine Metabols Negative U Cannabinoids Screen Negative Alcohol, Quantitative Blood Type B POSITIVE Blood Type Confirm Antibody Screen Negative BBK History Checked No verified bt 06/05/18 06/06/18 06/06/18 21:11 05:15 05:40 WBC 11.9 H D RBC 4.80 Hgb 17.5 D Hct 50.9 MCV 106.0 H D MCH 36.5 H MCHC 34.4 RDW 12.3 Plt Count 287 MPV 9.6 Neut % (Auto) 76.3 H Lymph % (Auto) 12.5 L [place] % (Auto) 10.8 H Eos % (Auto) 0.3 L Baso % (Auto) 0.1 Lymph # (Auto) 1.5 [place] # (Auto) 1.3 H Eos # (Auto) 0.0 Baso # (Auto) 0.01 Absolute Neuts (auto) 9.09 H PT INR APTT pCO2 36 pO2 449.0 H HCO3 28.1 H ABG pH 7.50 H ABG Total CO2 29.2 H ABG O2 Saturation 100.1 H ABG O2 Content 25.5 H ABG Base Excess 5.0 H ABG Hemoglobin 17.8 H ABG Carboxyhemoglobin 1.5 POC ABG HHb (Measured) -0.1 L ABG Methemoglobin 1.3 ABG O2 Capacity 25.5 H Hgb O2 Saturation 97.3 FiO2 100.0 Crit Value Called To Rn Crit Value Called By Rs Blood Gas Notified Time 527 Sodium Potassium Chloride Carbon Dioxide Anion Gap BUN Creatinine Est GFR ( Amer) Est GFR (Non-Af Amer) Random Glucose Calcium Phosphorus Magnesium Total Bilirubin AST ALT Alkaline Phosphatase Ammonia 11 Lactate Dehydrogenase Total Creatine Kinase Troponin I Total Protein Albumin Globulin Albumin/Globulin Ratio TSH 3rd Generation Urine Color Urine Appearance Urine pH Ur Specific [place] Urine Protein Urine Glucose (UA) Urine Ketones Urine Blood Urine Nitrate Urine Bilirubin Urine Urobilinogen Ur Leukocyte Esterase Urine RBC Urine WBC Ur Epithelial Cells Amorphous Sediment Urine Bacteria Fine Granular Casts Urine Other Salicylates Urine Opiates Screen Urine Methadone Screen Acetaminophen Ur Barbiturates Screen Ur Phencyclidine Scrn Ur Amphetamines Screen U Benzodiazepines Scrn U Oth Cocaine Metabols U Cannabinoids Screen Alcohol, Quantitative Blood Type Blood Type Confirm Antibody Screen BBK History Checked 06/06/18 05:40 WBC RBC Hgb Hct MCV MCH MCHC RDW Plt Count MPV Neut % (Auto) Lymph % (Auto) [place] % (Auto) Eos % (Auto) Baso % (Auto) Lymph # (Auto) [place] # (Auto) Eos # (Auto) Baso # (Auto) Absolute Neuts (auto) PT INR APTT pCO2 pO2 HCO3 ABG pH ABG Total CO2 ABG O2 Saturation ABG O2 Content ABG Base Excess ABG Hemoglobin ABG Carboxyhemoglobin POC ABG HHb (Measured) ABG Methemoglobin ABG O2 Capacity Hgb O2 Saturation FiO2 Crit Value Called To Crit Value Called By Blood Gas Notified Time Sodium 156 H* Potassium 4.7 Chloride 122 H Carbon Dioxide 27 Anion Gap 13 BUN 13 Creatinine 1.0 Est GFR ( Amer) > 60 Est GFR (Non-Af Amer) > 60 Random Glucose 201 H Calcium 11.4 H Phosphorus Magnesium Total Bilirubin 1.3 AST 113 H ALT 51 Alkaline Phosphatase 84 Ammonia Lactate Dehydrogenase Total Creatine Kinase Troponin I Total Protein 9.1 H Albumin 5.1 H Globulin 4.0 Albumin/Globulin Ratio 1.3 TSH 3rd Generation Urine Color Urine Appearance Urine pH Ur Specific [place] Urine Protein Urine Glucose (UA) Urine Ketones Urine Blood Urine Nitrate Urine Bilirubin Urine Urobilinogen Ur Leukocyte Esterase Urine RBC Urine WBC Ur Epithelial Cells Amorphous Sediment Urine Bacteria Fine Granular Casts Urine Other Salicylates Urine Opiates Screen Urine Methadone Screen Acetaminophen Ur Barbiturates Screen Ur Phencyclidine Scrn Ur Amphetamines Screen U Benzodiazepines Scrn U Oth Cocaine Metabols U Cannabinoids Screen Alcohol, Quantitative Blood Type Blood Type Confirm Antibody Screen BBK History Checked Radiology Impressions: Radiology Impressions Cervical Spine CT 06/05/18 17:45 IMPRESSION: No acute fracture or traumatic anterior listhesis. Straightening of the cervical spine may be positional or related to muscle spasm. Chest/Abdomen/Pelvis CT 06/05/18 17:45 Impression: Endotracheal tube terminates above the riya. No acute intra thoracic, intra-abdominal, or intrapelvic pathology identified. Incidental findings as above. Head CT 06/05/18 17:45 IMPRESSION: 1. Large acute parenchymal hematoma in the right basal ganglia and thalamus measuring 6.8 x 5.0 cm. Moderate surrounding vasogenic edema, significant local and regional mass effect with diffuse effacement of bilateral cortical sulci and basilar cisterns, right lateral ventricle and 12 mm midline shift from right to left. 2. Significant mass effect on the right midbrain and yocasta with impending uncal herniation. 3. Intraventricular extension of hemorrhage in the lateral, 3rd and 4th ventricles and moderate obstructive hydrocephalus. Critical findings were discussed with Dr. Hardy Ontiveros in the ER on 06/05/2018 at 6:13 p.m. Chest X-Ray 06/06/18 05:00 IMPRESSION: No infiltrate. ET tube and NG tube are in grossly appropriate position. EKG/Cardiology Studies: Cardiology / EKG Studies 06/05/18 17:50 ELECTROCARDIOGRAM Stat Comment: Reason For Exam: unresponsive Fingerstick Blood Sugar Results: 169
--- NOTE | 2018-06-06 11:26 | CP.PCM.PRO ---
Pronouncement of Note - Pronouncement Time Time of Pronouncement of : 09:50 - Notifications Pronouncement Notifications: Family Notified, Atending Notified Distribution Estimator Notified: Yes Addendum Addendum: 06/06/18 10:22 Asystole on monitor. On exam the patient did not respond to verbal or physical stimuli. Absent heart sounds. No spontaneous respirations on ventilator. Absent peripheral pulses. Pupils are fixed and dilated. Patient pronounced at 09:50 (24 hour format). Dr. Ibarra notified. Next of kin/family at bedside. life claims examiner notified by PGY-1 Dr Elam, [place] will take the case. Family notified regarding this being an [place] case. 06/06/18 11:25
[2018-06-06 11:45] VITALS: PULSE 48; RESP 8; O2SAT 74
--- NOTE | 2018-06-06 12:44 | CP.PCM.DIS ---
<JojoyareliDaniel evans - Last Filed: 06/06/18 12:29> Provider - Provider Date of Admission: 06/05/18 18:38 Attending physician: Arleen Ibarra MD Primary care physician: unknown Consults: 06/05/18 19:50 Consult [Physician Consult] Routine Comment: Consulting Provider: David Cobb Consulting Physician: David Cobb Reason for Consult: acute hemorrhage 06/05/18 19:51 Consult [Physician Consult] Routine Comment: Consulting Provider: Héctor Dyer Consulting Physician: Héctor Dyer Reason for Consult: basal ganglia bleed Time Spent in preparation of Discharge (in minutes): 60 Diagnosis - Discharge Diagnosis (1) ICH (intracerebral hemorrhage) Status: Acute Hospital Course - Lab Results Lab Results: Most Recent Lab Values WBC 11.9 10^3/uL (4.5-11.0) H D 06/06/18 05:40 RBC 4.80 10^6/uL (3.5-6.1) 06/06/18 05:40 Hgb 17.5 g/dL (14.0-18.0) D 06/06/18 05:40 Hct 50.9 % (42.0-52.0) 06/06/18 05:40 MCV 106.0 fl (80.0-105.0) H D 06/06/18 05:40 MCH 36.5 pg (25.0-35.0) H 06/06/18 05:40 MCHC 34.4 g/dl (31.0-37.0) 06/06/18 05:40 RDW 12.3 % (11.5-14.5) 06/06/18 05:40 Plt Count 287 10^3/uL (120.0-450.0) 06/06/18 05:40 MPV 9.6 fl (7.0-11.0) 06/06/18 05:40 Neut % (Auto) 76.3 % (50.0-68.0) H 06/06/18 05:40 Lymph % (Auto) 12.5 % (22.0-35.0) L 06/06/18 05:40 [place] % (Auto) 10.8 % (1.0-6.0) H 06/06/18 05:40 Eos % (Auto) 0.3 % (1.5-5.0) L 06/06/18 05:40 Baso % (Auto) 0.1 % (0.0-3.0) 06/06/18 05:40 Lymph # (Auto) 1.5 (1.2-3.4) 06/06/18 05:40 [place] # (Auto) 1.3 (0.1-0.6) H 06/06/18 05:40 Eos # (Auto) 0.0 (0.0-0.7) 06/06/18 05:40 Baso # (Auto) 0.01 K/mm3 (0.0-2.0) 06/06/18 05:40 Absolute Neuts (auto) 9.09 (1.4-6.5) H 06/06/18 05:40 PT 10.7 SECONDS (9.4-12.5) 06/05/18 17:45 INR 0.96 06/05/18 17:45 APTT 29.5 Seconds (26.9-38.3) 06/05/18 17:45 pCO2 36 mm/Hg (35-45) 06/06/18 05:15 pO2 449.0 mm/Hg (80-100) H 06/06/18 05:15 HCO3 28.1 mmol/L (21-28) H 06/06/18 05:15 ABG pH 7.50 (7.35-7.45) H 06/06/18 05:15 ABG Total CO2 29.2 mmol.L (22-28) H 06/06/18 05:15 ABG O2 Saturation 100.1 % (95-98) H 06/06/18 05:15 ABG O2 Content 25.5 ML/dl (15-23) H 06/06/18 05:15 ABG Base Excess 5.0 mmol/L (-2.0-3.0) H 06/06/18 05:15 ABG Hemoglobin 17.8 g/dL (11.7-17.4) H 06/06/18 05:15 ABG Carboxyhemoglobin 1.5 % (0.5-1.5) 06/06/18 05:15 POC ABG HHb (Measured) -0.1 % (0-5) L 06/06/18 05:15 ABG Methemoglobin 1.3 % (0.0-3.0) 06/06/18 05:15 ABG O2 Capacity 25.5 mL/dl (16-24) H 06/06/18 05:15 Hgb O2 Saturation 97.3 % (95.0-98.0) 06/06/18 05:15 FiO2 100.0 % 06/06/18 05:15 Crit Value Called To Rn 06/06/18 05:15 Crit Value Called By Rs 06/06/18 05:15 Blood Gas Notified Time 527 06/06/18 05:15 Sodium 156 mmol/L (132-148) H* 06/06/18 05:40 Potassium 4.7 mmol/L (3.6-5.0) 06/06/18 05:40 Chloride 122 mmol/L (98-107) H 06/06/18 05:40 Carbon Dioxide 27 mmol/L (21-33) 06/06/18 05:40 Anion Gap 13 (10-20) 06/06/18 05:40 BUN 13 mg/dL (7-21) 06/06/18 05:40 Creatinine 1.0 mg/dl (0.8-1.5) 06/06/18 05:40 Est GFR ( Amer) > 60 06/06/18 05:40 Est GFR (Non-Af Amer) > 60 06/06/18 05:40 Random Glucose 201 mg/dL (70-110) H 06/06/18 05:40 Calcium 11.4 mg/dL (8.4-10.5) H 06/06/18 05:40 Phosphorus 2.5 mg/dL (2.5-4.5) 06/05/18 17:45 Magnesium 1.7 mg/dL (1.7-2.2) 06/05/18 17:45 Total Bilirubin 1.3 mg/dL (0.2-1.3) 06/06/18 05:40 AST 113 U/L (17-59) H 06/06/18 05:40 ALT 51 U/L (7-56) 06/06/18 05:40 Alkaline Phosphatase 84 U/L (38-126) 06/06/18 05:40 Ammonia 11 umol/L (9-33) 06/05/18 21:11 Lactate Dehydrogenase 681 U/L (333-699) 06/05/18 17:45 Total Creatine Kinase 214 U/L (35-230) 06/05/18 17:45 Troponin I < 0.01 ng/mL 06/05/18 17:45 Total Protein 9.1 g/dL (5.8-8.3) H 06/06/18 05:40 Albumin 5.1 g/dL (3.0-4.8) H 06/06/18 05:40 Globulin 4.0 gm/dL 06/06/18 05:40 Albumin/Globulin Ratio 1.3 (1.1-1.8) 06/06/18 05:40 TSH 3rd Generation 3.37 mIU/mL (0.46-4.68) 06/05/18 17:45 Urine Color Yellow (YELLOW) 06/05/18 18:12 Urine Appearance Clear (CLEAR) 06/05/18 18:12 Urine pH 7.0 (4.7-8.0) 06/05/18 18:12 Ur Specific [place] 1.015 (1.005-1.035) 06/05/18 18:12 Urine Protein 30 mg/dL (<30 mg/dL) H 06/05/18 18:12 Urine Glucose (UA) 250 mg/dL (NEGATIVE) H 06/05/18 18:12 Urine Ketones Trace mg/dL (NEGATIVE) H 06/05/18 18:12 Urine Blood Large (NEGATIVE) H 06/05/18 18:12 Urine Nitrate Negative (NEGATIVE) 06/05/18 18:12 Urine Bilirubin Negative (NEGATIVE) 06/05/18 18:12 Urine Urobilinogen 0.2 E.U./dL (<1 E.U./dL) 06/05/18 18:12 Ur Leukocyte Esterase Negative [place]/uL (NEGATIVE) 06/05/18 18:12 Urine RBC 25 - 30 /hpf (0-2) H 06/05/18 18:12 Urine WBC 1 - 3 /hpf (0-6) 06/05/18 18:12 Ur Epithelial Cells 0 - 2 /hpf (0-5) 06/05/18 18:12 Amorphous Sediment Few /hpf (NONE) 06/05/18 18:12 Urine Bacteria Large /hpf (NONE) 06/05/18 18:12 Fine Granular Casts 0 - 2 /hpf (NONE) 06/05/18 18:12 Urine Other Fiber /hpf 06/05/18 18:12 Salicylates 4 mg/dL (2.0-20.0) 06/05/18 17:45 Urine Opiates Screen Negative (NEGATIVE) 06/05/18 18:12 Urine Methadone Screen Negative (NEGATIVE) 06/05/18 18:12 Acetaminophen < 10.0 ug/ml (10.0-20.0) L 06/05/18 17:45 Ur Barbiturates Screen Negative (NEGATIVE) 06/05/18 18:12 Ur Phencyclidine Scrn Negative (NEGATIVE) 06/05/18 18:12 Ur Amphetamines Screen Negative (NEGATIVE) 06/05/18 18:12 U Benzodiazepines Scrn Negative (NEGATIVE) 06/05/18 18:12 U Oth Cocaine Metabols Negative (NEGATIVE) 06/05/18 18:12 U Cannabinoids Screen Negative (NEGATIVE) 06/05/18 18:12 Alcohol, Quantitative < 10 mg/dL (0-10) 06/05/18 17:45 Blood Type B POSITIVE 06/05/18 19:12 Blood Type Confirm B POSITIVE 06/05/18 17:34 Antibody Screen Negative 06/05/18 19:12 BBK History Checked No verified bt 06/05/18 19:12 - Hospital Course Hospital Course: Daniel Moffett, PGY-1, Internal Medicine Discharge Summary for Dr. Ibarra 47 year old male with unknown past medical history presented to the emergency department by BLS for altered mental status. BLS reported that patient was found unresponsive at a bus stop with no witnesses present. Per BLS, Narcan was not administered as patient's pupils were not pinpoint. Patient currently intubated and unable to obtain full HPI and ROS due to AMS. Head CT showed large acute parenchymal hematoma in the right basal ganglia and thalamus measuring 6.8 x 5.0 cm, moderate surrounding vasogenic edema, significant local and regional mass effect with diffuse effacement of bilateral cortical sulci and basilar cisterns, right lateral ventricle and 12 mm midline shift from right to left, significant mass effect on the right midbrain and yocasta with impending uncal herniation, and intraventricular extension of hemorrhage in the lateral, 3rd and 4th ventricles and moderate obstructive hydrocephalus. [facility] CT and Cervical Spine CT showed no acute findings. Dr. Dyer, Neurology, and Dr. Cobb, Neurosurgery, were consulted for further recommendations. As per both consultants, no transfer or additional intervention was recommended due to patient's critical prognosis. This morning, patient coded 6 times and ICU physician, Dr. Boykin felt there would be no benefit in further CPR. Upon first code blue, patient was in PEA and compressions were performed. 2 doses of epinephrine were given with ROSC achieved. Patient was coded 5 more times with ROSC achieved each time. At that time, Dr. Boykin decided that CPR would not be beneficial. This was conveyed to sisters at 8:00 this morning. They understood that no CPR would be performed and would allow him to pass comfortably to do no harm and preserve integrity. Family agreed. At 9:50, asystole on monitor was seen and patient was pronounced. Family was made aware at bedside. psychological examiner was notified. Patient has unfortunately secondary to cardiopulmonary arrest 2/2 to intracranial hemorrhage. - Date & Time of H&P Date of H&P: 06/05/18 Time of H&P: 19:30 Discharge Exam - Additional Findings Additional findings: Patient is . Please refer to pronouncement note for last physical exam. Discharge Plan - Follow Up Plan Condition: CRITICAL Disposition: WITH WITHOUT AUTOPSY <Arleen Ibarra - Last Filed: 06/07/18 07:49> Provider - Provider Date of Admission: 06/05/18 18:38 Attending physician: Arleen Ibarra MD Consults: 06/05/18 19:50 Consult [Physician Consult] Routine Comment: Consulting Provider: David Cobb Consulting Physician: David Cobb Reason for Consult: acute hemorrhage 06/05/18 19:51 Consult [Physician Consult] Routine Comment: Consulting Provider: Héctor Dyer Consulting Physician: Héctor Dyer Reason for Consult: basal ganglia bleed Hospital Course - Lab Results Lab Results: Micro Results 06/05/18 18:12 Urine,[place] Urine Culture - Final No Growth (<1,000 CFU/ML) 06/05/18 21:11 Blood-Venous Blood Culture - Preliminary NO GROWTH AFTER 24 HOURS 06/05/18 21:11 Blood-Venous Blood Culture - Preliminary NO GROWTH AFTER 24 HOURS Most Recent Lab Values WBC 11.9 10^3/uL (4.5-11.0) H D 06/06/18 05:40 RBC 4.80 10^6/uL (3.5-6.1) 06/06/18 05:40 Hgb 17.5 g/dL (14.0-18.0) D 06/06/18 05:40 Hct 50.9 % (42.0-52.0) 06/06/18 05:40 MCV 106.0 fl (80.0-105.0) H D 06/06/18 05:40 MCH 36.5 pg (25.0-35.0) H 06/06/18 05:40 MCHC 34.4 g/dl (31.0-37.0) 06/06/18 05:40 RDW 12.3 % (11.5-14.5) 06/06/18 05:40 Plt Count 287 10^3/uL (120.0-450.0) 06/06/18 05:40 MPV 9.6 fl (7.0-11.0) 06/06/18 05:40 Neut % (Auto) 76.3 % (50.0-68.0) H 06/06/18 05:40 Lymph % (Auto) 12.5 % (22.0-35.0) L 06/06/18 05:40 [place] % (Auto) 10.8 % (1.0-6.0) H 06/06/18 05:40 Eos % (Auto) 0.3 % (1.5-5.0) L 06/06/18 05:40 Baso % (Auto) 0.1 % (0.0-3.0) 06/06/18 05:40 Lymph # (Auto) 1.5 (1.2-3.4) 06/06/18 05:40 [place] # (Auto) 1.3 (0.1-0.6) H 06/06/18 05:40 Eos # (Auto) 0.0 (0.0-0.7) 06/06/18 05:40 Baso # (Auto) 0.01 K/mm3 (0.0-2.0) 06/06/18 05:40 Absolute Neuts (auto) 9.09 (1.4-6.5) H 06/06/18 05:40 PT 10.7 SECONDS (9.4-12.5) 06/05/18 17:45 INR 0.96 06/05/18 17:45 APTT 29.5 Seconds (26.9-38.3) 06/05/18 17:45 pCO2 36 mm/Hg (35-45) 06/06/18 05:15 pO2 449.0 mm/Hg (80-100) H 06/06/18 05:15 HCO3 28.1 mmol/L (21-28) H 06/06/18 05:15 ABG pH 7.50 (7.35-7.45) H 06/06/18 05:15 ABG Total CO2 29.2 mmol.L (22-28) H 06/06/18 05:15 ABG O2 Saturation 100.1 % (95-98) H 06/06/18 05:15 ABG O2 Content 25.5 ML/dl (15-23) H 06/06/18 05:15 ABG Base Excess 5.0 mmol/L (-2.0-3.0) H 06/06/18 05:15 ABG Hemoglobin 17.8 g/dL (11.7-17.4) H 06/06/18 05:15 ABG Carboxyhemoglobin 1.5 % (0.5-1.5) 06/06/18 05:15 POC ABG HHb (Measured) -0.1 % (0-5) L 06/06/18 05:15 ABG Methemoglobin 1.3 % (0.0-3.0) 06/06/18 05:15 ABG O2 Capacity 25.5 mL/dl (16-24) H 06/06/18 05:15 Hgb O2 Saturation 97.3 % (95.0-98.0) 06/06/18 05:15 FiO2 100.0 % 06/06/18 05:15 Crit Value Called To Rn 06/06/18 05:15 Crit Value Called By Rs 06/06/18 05:15 Blood Gas Notified Time 527 06/06/18 05:15 Sodium 156 mmol/L (132-148) H* 06/06/18 05:40 Potassium 4.7 mmol/L (3.6-5.0) 06/06/18 05:40 Chloride 122 mmol/L (98-107) H 06/06/18 05:40 Carbon Dioxide 27 mmol/L (21-33) 06/06/18 05:40 Anion Gap 13 (10-20) 06/06/18 05:40 BUN 13 mg/dL (7-21) 06/06/18 05:40 Creatinine 1.0 mg/dl (0.8-1.5) 06/06/18 05:40 Est GFR ( Amer) > 60 06/06/18 05:40 Est GFR (Non-Af Amer) > 60 06/06/18 05:40 Random Glucose 201 mg/dL (70-110) H 06/06/18 05:40 Calcium 11.4 mg/dL (8.4-10.5) H 06/06/18 05:40 Phosphorus 2.5 mg/dL (2.5-4.5) 06/05/18 17:45 Magnesium 1.7 mg/dL (1.7-2.2) 06/05/18 17:45 Total Bilirubin 1.3 mg/dL (0.2-1.3) 06/06/18 05:40 AST 113 U/L (17-59) H 06/06/18 05:40 ALT 51 U/L (7-56) 06/06/18 05:40 Alkaline Phosphatase 84 U/L (38-126) 06/06/18 05:40 Ammonia 11 umol/L (9-33) 06/05/18 21:11 Lactate Dehydrogenase 681 U/L (333-699) 06/05/18 17:45 Total Creatine Kinase 214 U/L (35-230) 06/05/18 17:45 Troponin I < 0.01 ng/mL 06/05/18 17:45 Total Protein 9.1 g/dL (5.8-8.3) H 06/06/18 05:40 Albumin 5.1 g/dL (3.0-4.8) H 06/06/18 05:40 Globulin 4.0 gm/dL 06/06/18 05:40 Albumin/Globulin Ratio 1.3 (1.1-1.8) 06/06/18 05:40 TSH 3rd Generation 3.37 mIU/mL (0.46-4.68) 06/05/18 17:45 Urine Color Yellow (YELLOW) 06/05/18 18:12 Urine Appearance Clear (CLEAR) 06/05/18 18:12 Urine pH 7.0 (4.7-8.0) 06/05/18 18:12 Ur Specific [place] 1.015 (1.005-1.035) 06/05/18 18:12 Urine Protein 30 mg/dL (<30 mg/dL) H 06/05/18 18:12 Urine Glucose (UA) 250 mg/dL (NEGATIVE) H 06/05/18 18:12 Urine Ketones Trace mg/dL (NEGATIVE) H 06/05/18 18:12 Urine Blood Large (NEGATIVE) H 06/05/18 18:12 Urine Nitrate Negative (NEGATIVE) 06/05/18 18:12 Urine Bilirubin Negative (NEGATIVE) 06/05/18 18:12 Urine Urobilinogen 0.2 E.U./dL (<1 E.U./dL) 06/05/18 18:12 Ur Leukocyte Esterase Negative Willis/uL (NEGATIVE) 06/05/18 18:12 Urine RBC 25 - 30 /hpf (0-2) H 06/05/18 18:12 Urine WBC 1 - 3 /hpf (0-6) 06/05/18 18:12 Ur Epithelial Cells 0 - 2 /hpf (0-5) 06/05/18 18:12 Amorphous Sediment Few /hpf (NONE) 06/05/18 18:12 Urine Bacteria Large /hpf (NONE) 06/05/18 18:12 Fine Granular Casts 0 - 2 /hpf (NONE) 06/05/18 18:12 Urine Other Fiber /hpf 06/05/18 18:12 Salicylates 4 mg/dL (2.0-20.0) 06/05/18 17:45 Urine Opiates Screen Negative (NEGATIVE) 06/05/18 18:12 Urine Methadone Screen Negative (NEGATIVE) 06/05/18 18:12 Acetaminophen < 10.0 ug/ml (10.0-20.0) L 06/05/18 17:45 Ur Barbiturates Screen Negative (NEGATIVE) 06/05/18 18:12 Ur Phencyclidine Scrn Negative (NEGATIVE) 06/05/18 18:12 Ur Amphetamines Screen Negative (NEGATIVE) 06/05/18 18:12 U Benzodiazepines Scrn Negative (NEGATIVE) 06/05/18 18:12 U Oth Cocaine Metabols Negative (NEGATIVE) 06/05/18 18:12 U Cannabinoids Screen Negative (NEGATIVE) 06/05/18 18:12 Alcohol, Quantitative < 10 mg/dL (0-10) 06/05/18 17:45 Blood Type B POSITIVE 06/05/18 19:12 Blood Type Confirm B POSITIVE 06/05/18 17:34 Antibody Screen Negative 06/05/18 19:12 BBK History Checked No verified bt 06/05/18 19:12 Attending/Attestation - Attestation I have personally seen and examined this patient.: Yes I have fully participated in the care of the patient.: Yes I have reviewed all pertinent clinical information, including history, physical exam and plan: Yes Notes (Text): 06/06/18 47 year old male with past medical history of hypertension who was found down at a bus stop. Upon arrival to the ED he was found to have a large acute parenchymal hematoma in the right basal ganglia and thalamus with moderate surrounding vasogenic edema and significant mass effect. Neurosurgery was consulted with no acute intervention recommended given terminal prognosis. Patient was intubated and admitted to ICU. Early this morning patient coded several times. Family was present and agreed for comfort measure. Patient shortly afterwards. Family was consoled. Arleen Ibarra MD Hospitalist.
== END 2018-06-06 09:45 | DRG 64 ==
LOC: ED 17:20 → ERH 18:38 → ICU 20:34
PROVIDERS: ADMIT Internal Medicine; ATTEND Internal Medicine
PROC: 0BH17EZ Insertion of Endotracheal Airway into Trachea, Via Natural or Artificial Opening (ICD-10-PCS; 2018-06-05)
PROC: 5A1935Z Respiratory Ventilation, Less than 24 Consecutive Hours (ICD-10-PCS; 2018-06-05)
PROC: 06HY33Z Insertion of Infusion Device into Lower Vein, Percutaneous Approach (ICD-10-PCS; principal; 2018-06-06)
PROC: 04HK33Z Insertion of Infusion Device into Right Femoral Artery, Percutaneous Approach (ICD-10-PCS; 2018-06-06)
DX: I61.5 Nontraumatic intracerebral hemorrhage, intraventricular (principal); G93.6 Cerebral edema; G91.1 Obstructive hydrocephalus; I10 Essential (primary) hypertension